=== PATIENT | female | born 1960 | race Caucasian/White ===

== ENCOUNTER 2017-06-15 03:33 | Observation (INO) ==
[2017-06-16] MEDS ORDERED: *HR* Heparin 5,000 UNIT/ML VIAL IVP PRN ×2 (07:19)
[2017-06-16] MEDS ORDERED: Naloxone 0.4 MG/ML INJ IVP PRN (09:19)
[2017-06-16 09:34] LABS: Potassium 4.5 mEq/L (3.5-5.1)
[2017-06-16 09:35] LABS: Calcium 9.2 mg/dL (8.6-10.3)
[2017-06-16] MEDS ORDERED: Furosemide 40 MG/4 ML VIAL IVP ONE (09:36)
[2017-06-16] MEDS ORDERED: Furosemide 40 MG/4 ML VIAL ONE (09:38)
[2017-06-16] MEDS: Heparin 25,000 UNIT/500 ML D5W 25,000 UNIT/500 ML BAG IVC SCH (09:53)
[2017-06-16] MEDS: traMADol 50 MG TABLET PO PRN ×3 (10:01→22:45)
[2017-06-16] MEDS ORDERED: Nitroglycerin 0.2 MG PATCH.TD24 TD SCH (10:15)
[2017-06-16 10:26] LABS: ABG Base Excess -2 mEq/L (-2 to 3); ABG HCO3 23 mEq/L (21-27); ABG Oxygen Saturation 96 % (95-98); ABG PCO2 37 mmHg (35-45); ABG PO2 80 mmHg (85-104); ABG TCO2 24 mEq/L (20-26)
--- NOTE | 2017-06-16 10:27 | Internal Med History&Physical ---
Date of Encounter: 06/16/17 Time of Encounter: 10:25 Assessment and Plan (1) Chest pain Current visit: Yes Status: Acute Patient with chest pain she states he had a cardiac catheter about 3 years ago some blockages no intervention done cardiology consulted could review prior cath film and decide on further intervention . am unable to see record of the cardiac cath in system Qualifiers: Chest pain type: precordial pain Qualified Code(s): R07.2 - Precordial pain (2) COPD (chronic obstructive pulmonary disease) Current visit: Yes Status: Chronic Patient had bilateral fine rales up to her neck more suggestive of pulmonary fibrosis I will check a stat Bnp as well Qualifiers: COPD type: unspecified COPD Qualified Code(s): J44.9 - Chronic obstructive pulmonary disease, unspecified (3) Pulmonary fibrosis Current visit: Yes Status: Chronic Chronic we will consult pulmonary for follow chest distress suggestive of small obesity of the left lateral base (4) HTN (hypertension) Current visit: Yes Status: Chronic Chronic and relatively controlled Qualifiers: Hypertension type: essential hypertension Qualified Code(s): I10 - Essential (primary) hypertension (5) Diabetes 1.5, managed as type 2 Current visit: Yes Status: Chronic Chronic and resume home medication and place on sliding scale (6) CKD (chronic kidney disease) Current visit: Yes Status: Chronic Chronic with fluctuating kidney function nephrology has been consulted for follow-up Qualifiers: Chronic kidney disease stage: stage 2 (mild) Qualified Code(s): N18.2 - Chronic kidney disease, stage 2 (mild) (7) Hyperlipidemia Current visit: Yes Status: Chronic Chronic Qualifiers: Hyperlipidemia type: pure hypercholesterolemia Qualified Code(s): E78.00 - Pure hypercholesterolemia, unspecified; E78.0 - Pure hypercholesterolemia (8) CAD (coronary artery disease) Current visit: Yes Status: Acute Qualifiers: Coronary Disease-Associated Artery/Lesion type: [place] artery [place] vs. transplanted heart: [place] heart Associated angina: with stable angina Qualified Code(s): I25.118 - Atherosclerotic heart disease of [place] coronary artery with other forms of angina pectoris Internal Medicine - H&P: HPI Chief complaint: chest pain Admitted From: Intrahospital Transfer Plans for Post Hospital Care: Home History of present illness: Ms. García is a 56 year old female Patient with history of CAD, COPD, pulmonary fibrosis, diabetes, hypertension, CK D, and obesity patient transfer from [facility] due to chest pain patient presented with chest pain recurrent episode radiating to her left arm and shoulder that being ongoing since Thursday and that she went in last night chest pain lasted several hours EKG nonspecific ST T wave changes troponin so far was negative and patient transfer here for further evaluation. Patient still short of breath on arrival here still has chest pain. Cardiology was called for consultation for further evaluation. Past Med Surg Social Fam HX - Past Medical History Medical history: COPD, diabetes, GERD, hyperlipidemia, hypertension Internal Medicine - H&P: Meds Albuterol Sulfate [Ventolin Hfa] 1 - 2 puff IH Q4-6H PRN 06/16/17 [History] Atorvastatin Calcium [Lipitor] 80 mg PO HS 06/16/17 [History] Bupropion HCl [Wellbutrin Xl] 300 mg PO DAILY 06/16/17 [History] Gabapentin [Neurontin] 300 mg PO BID 06/16/17 [History] Hydroxychloroquine Sulfate [Plaquenil] 200 mg PO BID 06/16/17 [History] Insulin NPH Hum/Reg Insulin Hm [Humulin 70-30 Vial] 40 unit SQ BID 06/16/17 [ History] Ipratropium/Albuterol Neb [Duoneb] 3 ml IH Q6HR PRN 06/16/17 [History] Levothyroxine Sodium [Levoxyl] 25 mcg PO DAILY 06/16/17 [History] Magnesium Oxide [Magnesium] 400 mg PO DAILY 06/16/17 [History] Metoprolol [Lopressor] 37.5 mg PO BID 06/16/17 [History] Mv,Fe,Min/Lutein [A Thru Z [employer] Tablet] 1 tab PO DAILY 06/16/17 [ History] Omeprazole [PriLOSEC] 20 mg PO DAILY 06/16/17 [History] RX: hydrALAZINE [HydrALAZINE] 10 mg PO TID 06/16/17 [History] Ubidecarenone [Co Q-10] 10 mg PO DAILY 06/16/17 [History] 3 Allergy/AdvReac Type Severity Reaction Status Date / Time codeine Allergy Vomiting Unverified 04/09/17 00:30 Cortisone Allergy Headache Unverified 04/09/17 00:30 methocarbamol [From Robaxin] Allergy See Unverified 04/09/17 00:30 Comments sulfasalazine Allergy Rash Unverified 04/09/17 00:31 All Systems PM: A 10-system review of systems was performed and is negative for pertinent findings except as documented above in the HPI. - Constitutional Constitutional: no chills, no fever(s), no night sweats - EENT Ears: no ear discharge, no ear pain, no tinnitus - Cardiovascular Cardiovascular ROS IM: chest pain, dyspnea, dyspnea on exertion - Respiratory Respiratory: dyspnea, dyspnea on exertion - Gastrointestinal Gastrointestinal: no abdominal pain, no diarrhea, no hematemesis, no hematochezia, no melena, no nausea, no vomiting - Genitourinary Genitourinary: no change in urinary stream, no dysuria, no flank pain, no hematuria - Constitutional Vitals: Temp Pulse Resp BP Pulse Ox 98.1 F 114 20 142/82 93 06/16/17 06:39 06/16/17 06:39 06/16/17 06:39 06/16/17 09:41 06/16/17 06:39 General appearance: Present: morbidly obese - Eye Eye exam: Present: PERRL, conjuntiva pink, sclera anicteric Pupils: Present: PERRL - Respiratory Respiratory exam: Present: prolonged expiratory phase, rhonchi - Cardiovascular Cardiovascular exam: Present: RRR, +S1, +S2. Absent: diastolic murmur, gallop, rubs, systolic murmur - GI/Abdominal GI/Abdominal exam: Present: normal bowel sounds, soft, no peritoneal signs. Absent: distended, tenderness Internal Med - H&P Results - Labs CBC & Chem 7: 06/16/17 07:19 Labs: BMP 06/16/17 07:19 Sodium 134 L Potassium 4.5 Chloride 101 Carbon Dioxide 20 L BUN 22 H Creatinine 1.73 H Glucose 249 H Calcium 9.2 Cardiac Enzymes 06/16/17 Range/Units 07:19 Troponin I < 0.03 (< 0.04) ng/mL
[2017-06-16] MEDS ORDERED: Dextrose Gel 15 GM/37.5 ML TUBE PO PRN ×2 (11:05)
[2017-06-16] MEDS ORDERED: *HR* Dextrose 50 % in Water (Syg) 50 ML SYRINGE IVP PRN (11:05)
[2017-06-16] MEDS ORDERED: D5% in Water 1,000 ML IVC PRN (11:05)
[2017-06-16] MEDS: Insulin LISPRO 300 UNITS/3 ML VIAL SQ SCH ×3 (11:18→22:14)
--- NOTE | 2017-06-16 12:07 | Event Note ---
Date of Encounter: 06/16/17 Time of Encounter: 12:10 - Cardiology Event Note Patient seen and examined by Dr. Naranjo, echo ordered per our discussions. Further recommendations pending echo.
[2017-06-16] MEDS: Ondansetron 4 MG/2 ML VIAL IVP SCH ×2 (12:40→17:32)
[2017-06-16] MEDS: Acetaminophen 325 MG TABLET PO PRN ×2 (12:45→19:49)
--- NOTE | 2017-06-16 13:11 | Nephrology Consult Note ---
Date of Encounter: 06/16/17 Time of Encounter: 13:09 Assessment and Plan (1) CKD (chronic kidney disease) stage 3, GFR 30-59 ml/min Current Visit: Yes Status: Acute Patient is at her baseline Scr 1.73 and GFR 30 If patient undergoes heart cath then renal protective measures should be taken including IV fluids of 0.9NS before and after procedure as tolerated and Mucomyst 600mg BID with two doses before cath and two doses after cath Need strict I/Os Avoid nephrotoxins if possible. (2) Chest pain Current Visit: Yes Status: Acute per cardiology team Qualifiers: Chest pain type: precordial pain Qualified Code(s): R07.2 - Precordial pain (3) COPD (chronic obstructive pulmonary disease) Current Visit: Yes Status: Chronic per primary team Qualifiers: COPD type: unspecified COPD Qualified Code(s): J44.9 - Chronic obstructive pulmonary disease, unspecified History of Present Illness - Reason for Consult Consult date: 06/16/17 - Chief Complaint chest pain, CKD stage 3b - History of Present Illness Ms. García is a 56 year old female with a PMH of CAD, COPD, pulmonary fibrosis , diabetes, hypertension, CKD stage 3b, and obesity patient transferred from [facility] due to chest pain. EKG changes but troponin so far was negative. Cardiology has ordered an echo which is pending. Patient follows with Dr Galvez in the office but has only seen her a couple times with last visit in April; has a f/u appointment with her in July. Past Med Surg Social Fam HX - Past Medical History Medical history: COPD, diabetes, GERD, hyperlipidemia, hypertension, renal disease Medications and Allergies Albuterol Sulfate [Ventolin Hfa] 1 - 2 puff IH Q4-6H PRN 06/16/17 [History] Atorvastatin Calcium [Lipitor] 80 mg PO HS 06/16/17 [History] Bupropion HCl [Wellbutrin Xl] 300 mg PO DAILY 06/16/17 [History] Gabapentin [Neurontin] 300 mg PO BID 06/16/17 [History] Hydroxychloroquine Sulfate [Plaquenil] 200 mg PO BID 06/16/17 [History] Insulin NPH Hum/Reg Insulin Hm [Humulin 70-30 Vial] 40 unit SQ BID 06/16/17 [ History] Ipratropium/Albuterol Neb [Duoneb] 3 ml IH Q6HR PRN 06/16/17 [History] Levothyroxine Sodium [Levoxyl] 25 mcg PO DAILY 06/16/17 [History] Magnesium Oxide [Magnesium] 400 mg PO DAILY 06/16/17 [History] Metoprolol [Lopressor] 37.5 mg PO BID 06/16/17 [History] Mv,Fe,Min/Lutein [A Thru Z [employer] Tablet] 1 tab PO DAILY 06/16/17 [ History] Omeprazole [PriLOSEC] 20 mg PO DAILY 06/16/17 [History] Ubidecarenone [Co Q-10] 10 mg PO DAILY 06/16/17 [History] hydrALAZINE [HydrALAZINE] 10 mg PO TID 06/16/17 [History] 3 Allergy/AdvReac Type Severity Reaction Status Date / Time codeine Allergy Vomiting Unverified 04/09/17 00:30 Cortisone Allergy Headache Unverified 04/09/17 00:30 methocarbamol [From Robaxin] Allergy See Unverified 04/09/17 00:30 Comments sulfasalazine Allergy Rash Unverified 04/09/17 00:31 Review of Systems All Systems: reviewed and no additional remarkable complaints except as stated Constitutional: malaise, no chills, no fever(s) Cardiovascular: chest pain, dyspnea, dyspnea on exertion Respiratory: dyspnea, dyspnea on exertion Gastrointestinal: no cramping, no nausea Neurological: no behavioral changes Exam - Vital Signs Vital signs: Initial Vital Signs Temp Pulse Resp BP Pulse Ox 98.1 F 114 20 143/103 93 06/16/17 06:39 06/16/17 06:39 06/16/17 06:39 06/16/17 06:39 06/16/17 06:39 Vital Signs - Last 8 Hours Temp Pulse Resp BP Pulse Ox 06/16/17 11:11 97.7 F 113 20 157/97 98 06/16/17 09:41 142/82 06/16/17 06:39 98.1 F 114 20 143/103 93 Intake and Output 06/15/17 06/16/17 06/16/17 23:59 07:59 15:59 Other: Weight 83.915 kg Blood Glucose* 228 Patient Weight 06/16/17 23:59 Weight 83.915 kg - General Appearance General appearance: obese EENT: ATNC, mucous membranes moist, hearing intact, vision intact Neck: supple Respiratory: clear (labored, difficulty talking in complete sentenses due to SOB ) Cardiology: no edema, normal S1, normal S2 Gastrointestinal: no tenderness, no guarding Integumentary: warm and dry Neurologic: alert and oriented x3 Psychiatric: mood/affect appropriate, cooperative Results - Lab Results 06/16/17 07:19 Most recent lab results ABG pH 7.40 pH Units (7.32-7.45) 06/16/17 10:08 ABG pCO2 37 mmHg (35-45) 06/16/17 10:08 ABG pO2 80 mmHg (85-104) L 06/16/17 10:08 ABG HCO3 23 mEq/L (21-27) 06/16/17 10:08 ABG O2 Saturation 96 % (95-98) 06/16/17 10:08 Calcium 9.2 mg/dL (8.6-10.3) 06/16/17 07:19 Consult Discharge Plan - Plan Referrals: Risa Epperson MD [Primary Care Provider] -
--- NOTE | 2017-06-16 13:49 | Cardiology Consult Note ---
Date of Encounter: 06/16/17 Time of Encounter: 13:46 Assessment and Plan (1) Chest pain Current Visit: Yes Status: Acute pleuritic with negative Cl x 2. No LHC unless convincing ACS due to CKD. No diuresis unless Vlume overload on Cxray or non contrast CT, bibasilar crackles can be UIP. Continue NTG atch and titrate to SBP of 100 mmHg Qualifiers: Chest pain type: precordial pain Qualified Code(s): R07.2 - Precordial pain (2) CAD (coronary artery disease) Current Visit: Yes Status: Acute Known severe 2 vessel cad as above. High risk LHC due to CKD, would consider NST if trops continue to be negative and patients chest pain/SOB improve. Qualifiers: Coronary Disease-Associated Artery/Lesion type: [place] artery [place] vs. transplanted heart: [place] heart Associated angina: with stable angina Qualified Code(s): I25.118 - Atherosclerotic heart disease of [place] coronary artery with other forms of angina pectoris Discussion w patient/family: The assessment and plan as outlined above was discussed with the patient and/or family members who expressed understanding and agreement. All questions were answered. Thank you for involving us in the care of your patient. Please call with any questions. History of Present Illness Consult date: 06/16/17 Consult reason: chest pain Chief complaint: chest pain History of present illness: Ms. García is a 56 year old female with a PMH of CAD, COPD, pulmonary fibrosis , diabetes, hypertension, CKD stage 3b, and obesity patient transferred from [facility] due to chest pain. Chest pain atypical slightly pleuritc in nature worse with deep breathing. EKG inferolateral changes suggestive of ischemia. Troponins x2 negative so far. Bibasilar crackles and mild LE edema intial thought was pulmonary edema however after x 2 negatiive Cl and UIP on CT of the chest no Lasix was administered only NTG patch for reducing her preload. I was concerned about her renal function and so Nephrology was consulted, appreciate there input. I will obtain an ECHO to evaluate for SHD and consider a NST since trops are negative. Previous [facility] 2014 reveals occluded LAD and severe disease of the CIRC. Some collaterals from RCA to LAD noted. CXray pending. Past Med Surg Social Fam HX - Past Medical History Medical history: COPD, diabetes, GERD, hyperlipidemia, hypertension, renal disease Medications and Allergies Albuterol Sulfate [Ventolin Hfa] 1 - 2 puff IH Q4-6H PRN 06/16/17 [History] Atorvastatin Calcium [Lipitor] 80 mg PO HS 06/16/17 [History] Bupropion HCl [Wellbutrin Xl] 300 mg PO DAILY 06/16/17 [History] Gabapentin [Neurontin] 300 mg PO BID 06/16/17 [History] Hydroxychloroquine Sulfate [Plaquenil] 200 mg PO BID 06/16/17 [History] Insulin NPH Hum/Reg Insulin Hm [Humulin 70-30 Vial] 40 unit SQ BID 06/16/17 [ History] Ipratropium/Albuterol Neb [Duoneb] 3 ml IH Q6HR PRN 06/16/17 [History] Levothyroxine Sodium [Levoxyl] 25 mcg PO DAILY 06/16/17 [History] Magnesium Oxide [Magnesium] 400 mg PO DAILY 06/16/17 [History] Metoprolol [Lopressor] 37.5 mg PO BID 06/16/17 [History] Mv,Fe,Min/Lutein [A Thru Z [employer] Tablet] 1 tab PO DAILY 06/16/17 [ History] Omeprazole [PriLOSEC] 20 mg PO DAILY 06/16/17 [History] Ubidecarenone [Co Q-10] 10 mg PO DAILY 06/16/17 [History] hydrALAZINE [HydrALAZINE] 10 mg PO TID 06/16/17 [History] 3 Allergy/AdvReac Type Severity Reaction Status Date / Time codeine Allergy Vomiting Unverified 04/09/17 00:30 Cortisone Allergy Headache Unverified 04/09/17 00:30 methocarbamol [From Robaxin] Allergy See Unverified 04/09/17 00:30 Comments sulfasalazine Allergy Rash Unverified 04/09/17 00:31 All Systems Review: The remainder of the systems were reviewed and are negative Physical Examination Vital Signs, Last 4 Hours Temp Pulse Resp BP Pulse Ox 06/16/17 11:11 97.7 F 113 20 157/97 98 General: Conversant, No Apparent Distress HEENT: Atraumatic, Normocephaly, Mucus Membranes Moist Neck: No JVD, Normal carotid pulses Cardiac: Reg Rate and Rhythm, Normal S1 and S2, No Murmur Lungs: Normal Breath Sounds, No Wheeze, Rales, Rhonchi (bibasilar crackles) Neuro: Alert and responsive, No focal deficits noted Abdomen: Soft, Non-Tender Skin: No rashes noted on visualized skin Musculoskeletal: No Chest Wall Tenderness Extremities: No Clubbing, No Cyanosis, No Edema, Normal Pulses Results 06/16/17 07:19 Lab Results 06/16/17 06/16/17 06/16/17 07:19 07:19 07:19 APTT 78.6 H Sodium 134 L Potassium 4.5 Chloride 101 Carbon Dioxide 20 L BUN 22 H Creatinine 1.73 H Glucose 249 H Calcium 9.2 Troponin I < 0.03 B-Natriuretic Peptide 06/16/17 06/16/17 09:57 09:57 APTT Sodium Potassium Chloride Carbon Dioxide BUN Creatinine Glucose Calcium Troponin I < 0.03 B-Natriuretic Peptide 177 H Consult Discharge Plan - Plan Referrals: Risa Epperson MD [Primary Care Provider] -
[2017-06-16 15:58] LABS: Bilirubin,Urine Negative (Negative); Blood,Urine Small (Negative); Clarity,Urine Turbid (Clear); Color,Urine Yellow (Yellow); Glucose,Urine (UA) 100 mg/dL (Normal); Ketones,Urine Negative (Negative); Leukocyte Esterase,Urine Negative (Negative); Nitrite,Urine Negative (Negative); PH,Urine 5.5 pH Units (5.0-8.0); Protein,Urine 100 mg/dL (Neg-Trace); Specific Gravity,Urine 1.027 (1.010-1.025); Urobilinogen,Urine Normal (Normal)
[2017-06-16 16:00] LABS: Bacteria,Urine None Seen per hpf (None-Few); RBC,Urine 30-50 per hpf (0-3); Squamous Epithelial Cell,Urine Many per lpf (None-Few)
[2017-06-16] MEDS ORDERED: 0.9 % Sodium Chloride 1,000 ML IVC SCH (17:30)
[2017-06-16] MEDS ORDERED: Ondansetron 4 MG/2 ML VIAL IVP SCH (18:00)
[2017-06-16] MEDS: Gabapentin 300 MG CAPSULE PO SCH (19:49)
[2017-06-16 19:54] LABS: Hyaline Casts,Urine Few per lpf (None-Few)
[2017-06-17] MEDS: Ondansetron 4 MG/2 ML VIAL IVP SCH ×4 (01:06→17:48)
[2017-06-17 01:45] LABS: Basophils % 0.2 %; Eosinophils # 0.1 K/mcL (0.0-0.6); Eosinophils % 0.5 %; Hemoglobin 9.6 g/dL (11.5-15.4); Immature Granulocytes % 0.7 % (0-4); Lymphocytes # 1.2 K/mcL (0.6-4.6); Lymphocytes % 9.6 %; Mean Corpuscular Hemoglobin 29.4 pg (28.0-33.3); Mean Corpuscular Volume 91.7 fL (83.0-100.0); Mean Platelet Volume 11.5 fL (9.4-12.4); Monocytes # 1.1 K/mcL (0.0-1.3); Monocytes % 8.7 %; Neutrophils # 9.9 K/mcL (1.6-8.9); Platelet Count 258 K/mcL (140-400); Red Blood Count 3.27 M/mcL (3.82-4.97); Red Cell Distribution Width 15.2 % (11.5-14.5); Segmented Neutrophils % 80.3 %
[2017-06-17 02:11] LABS: Albumin 3.5 g/dL (3.5-5.7); Bilirubin,Direct 0.1 mg/dL (0.0-0.2); Bilirubin,Indirect 0.3 mg/dL (0.0-1.2); Bilirubin,Total 0.4 mg/dL (0.3-1.0); Globulin 3.6 g/dL (2.4-3.5); Total Protein 7.1 g/dL (6.4-8.9)
[2017-06-17 02:12] LABS: Albumin 3.5 g/dL (3.5-5.7); Bilirubin,Total 0.4 mg/dL (0.3-1.0); Calcium 9.3 mg/dL (8.6-10.3); Chol/HDL Ratio 6.3 (0-4.9); Globulin 3.5 g/dL (2.4-3.5); Magnesium 1.5 mg/dL (1.6-2.6)
[2017-06-17] MEDS: Heparin 25,000 UNIT/500 ML D5W 25,000 UNIT/500 ML BAG IVC SCH (06:15)
[2017-06-17] MEDS: traMADol 50 MG TABLET PO PRN ×2 (06:18→14:05)
[2017-06-17] MEDS: Levothyroxine 25 MCG TABLET PO SCH (06:19)
[2017-06-17] MEDS ORDERED: Nitroglycerin 0.2 MG PATCH.TD24 TD SCH (07:30)
[2017-06-17] MEDS: (Ubidecarenone [Co Q-10] 10 MG) PO SCH (07:45)
[2017-06-17] MEDS: Insulin LISPRO 300 UNITS/3 ML VIAL SQ SCH ×4 (07:52→22:19)
--- NOTE | 2017-06-17 10:19 | Internal Med Progress Note ---
<Juan Funk - Last Filed: 06/17/17 12:03> Date of Encounter: 06/17/17 Time of Encounter: 10:17 - Assessment and plan (1) Chest pain Current Visit: Yes Status: Acute Assessment and plan: Patient's chest pain is improved Cardiology has been consulted-recommended continuation of the nitroglycerin patch. Cardiology feels that this patient is high risk for an LHC due to her CKD. Possible NST if troponins are still negative and the patient's chest pain and shortness of breath improved. Patient is currently NPO per cardiology Echocardiogram showed LV EF of 40-45% with a moderate to large pericardial effusion without evidence of tamponade. We will repeat a limited echocardiogram to evaluate pericardial effusion. CT scan of the chest showed: Findings as above suggesting edema superimposed on top of the interstitial lung disease. Small to moderate pericardial effusion, new. No substantial change otherwise Qualifiers: Chest pain type: precordial pain Qualified Code(s): R07.2 - Precordial pain (2) Pneumonia Current Visit: Yes Status: Suspected Assessment and plan: Concern for possible pneumonia based on CT scan and elevated white count. Patient will be started on IV Levaquin and steroids Pulmonology has been consult. Qualifiers: Pneumonia type: due to unspecified organism Laterality: right Lung location: upper lobe of lung Qualified Code(s): J18.1 - Lobar pneumonia, unspecified organism (3) CAD (coronary artery disease) Current Visit: Yes Status: Acute Assessment and plan: Patient has a history of significant 2 vessel disease. Per medical record it appears that she has occluded LAD and severe disease of her circumflex. Qualifiers: Coronary Disease-Associated Artery/Lesion type: [place] artery [place] vs. transplanted heart: [place] heart Associated angina: with stable angina Qualified Code(s): I25.118 - Atherosclerotic heart disease of [place] coronary artery with other forms of angina pectoris (4) Diabetes Current Visit: Yes Status: Acute Assessment and plan: Patient is on medium corrective dose insulin Continue with current insulin regimen. Qualifiers: Diabetes mellitus type: other specified (including ILIR) Diabetes mellitus complication status: with unspecified complications Diabetes mellitus intermodal dispatcher insulin use: unspecified intermodal dispatcher insulin use status Qualified Code(s): E13.8 - Other specified diabetes mellitus with unspecified complications (5) Pulmonary fibrosis Current Visit: Yes Status: Chronic Assessment and plan: Patient is a chronic history of pulmonary fibrosis Pulmonology has been consulted Continue with oxygen supplementation (6) CKD (chronic kidney disease) Current Visit: Yes Status: Chronic Assessment and plan: CKD stage III Nephrology has been consulted and is following the patient. Retroperitoneal ultrasound is unremarkable. Qualifiers: Chronic kidney disease stage: stage 2 (mild) Qualified Code(s): N18.2 - Chronic kidney disease, stage 2 (mild) (7) Swelling of left lower extremity Current Visit: Yes Status: Acute Assessment and plan: Unequal swelling of the lower extremities. Patient has swelling to the left lower extremity A venous imaging of the left lower extremity to evaluate for DVT has been ordered by nephrology. (8) HTN (hypertension) Current Visit: Yes Status: Chronic Assessment and plan: Chronic continue with current medical management. Qualifiers: Hypertension type: essential hypertension Qualified Code(s): I10 - Essential (primary) hypertension (9) Hyperlipidemia Current Visit: Yes Status: Chronic Assessment and plan: chronic issue Qualifiers: Hyperlipidemia type: pure hypercholesterolemia Qualified Code(s): E78.00 - Pure hypercholesterolemia, unspecified; E78.0 - Pure hypercholesterolemia - Subjective Interval history: Patient states that her chest pain is feeling better today however she is still having neck and shoulder pain. She states that the chest pain that she was experiencing was new located in the center of her chest that radiated to her right shoulder and into her neck. Patient does state that she has been wearing 2 L of oxygen at home however she recently tried requalify with the 6 minute walk but her oxygen saturation did not drop below 90% and states that they will be taking her home oxygen away. - Constitutional Vitals: Temp Pulse Resp BP Pulse Ox 97.9 F 109 20 156/89 97 06/17/17 06:51 06/17/17 06:51 06/17/17 06:51 06/17/17 06:51 06/17/17 08:01 General appearance: Present: morbidly obese - Head Head exam: Present: atraumatic, normocephalic - Neck Neck exam general surgery: Present: full ROM, normal inspection, trachea midline - Respiratory Additional comments: Diminished breath sounds bilaterally - Cardiovascular Cardiovascular exam: Present: RRR, +S1, +S2. Absent: diastolic murmur, gallop, rubs, systolic murmur - GI/Abdominal GI/Abdominal exam: Present: normal bowel sounds, soft, no peritoneal signs. Absent: distended, tenderness - Extremities Exam Additional comments: Patient has asymmetrical swelling of the lower extremities. She has increased swelling in her left lower extremity - Neurological Exam Neurological exam: Present: altered, oriented X3, no focal deficits. Absent: facial droop, speech deficit - Psychiatric Psychiatric exam: Present: normal affect, normal mood - Skin Skin exam: Present: dry, intact, warm Internal Medicine: Result - Labs CBC & Chem 7: 06/17/17 01:12 06/17/17 01:12 Labs: Short CBC 06/17/17 Range/Units 01:12 WBC 12.3 H (4.3-11.1) K/mcL Hgb 9.6 L (11.5-15.4) g/dL Hct 30.0 L (35.3-44.9) % Plt Count 258 (140-400) K/mcL Neutrophils # 9.9 H (1.6-8.9) K/mcL BMP 06/17/17 01:12 Sodium 133 L Potassium 4.0 Chloride 100 Carbon Dioxide 23 BUN 26 H Creatinine 1.66 H Glucose 144 H Calcium 9.3 Cardiac Enzymes 06/16/17 06/16/17 06/16/17 Range/Units 09:57 17:09 22:00 Troponin I < 0.03 < 0.03 < 0.03 (< 0.04) ng/mL Liver Function 06/17/17 06/17/17 Range/Units 01:12 01:12 Total Bilirubin 0.4 0.4 (0.3-1.0) mg/dL Direct Bilirubin 0.1 (0.0-0.2) mg/dL AST 12 L 12 L (13-39) Units/L ALT 16 16 (7-52) Units/L Alkaline Phosphatase 67 67 (34-104) Units/L Albumin 3.5 3.5 (3.5-5.7) g/dL Urine 06/16/17 Range/Units 15:08 Urine Color Yellow (Yellow) Urine Clarity Turbid A (Clear) Urine pH 5.5 (5.0-8.0) pH Units Ur Specific [place] 1.027 H (1.010-1.025) Urine Protein 100 H (Neg-Trace) mg/dL Urine Glucose (UA) 100 H (Normal) mg/dL - ABG Interpretation ABG results: ABG ABG pH 7.40 pH Units (7.32-7.45) 06/16/17 10:08 ABG pCO2 37 mmHg (35-45) 06/16/17 10:08 ABG pO2 80 mmHg (85-104) L 06/16/17 10:08 ABG O2 Saturation 96 % (95-98) 06/16/17 10:08 - Impressions Impressions Echocardiogram 06/16/17 10:30 Impressions: Difficult to precisely determine LVEF due to poor image quality. Grossly, LVEF 40-45%. Indeterminate diastolic function. Grossly, normal right ventricular structure and function. Grossly normal right atrial size. Unable to estimate RVSP due to lack of TR jet. The IVC is not well evaluated. There is a moderate to large pericardial effusion present. Echogenic material noted, adherent to the RV. No obvious tamponade. Overall, this was a very poor quality echocardiogram due to clinical status and poor windows. Clinical correlation suggested. Recommend repeat study with Definity contrast when able to better evaluate LVEF. Repeat study as clinically necessary for pericardial effusion. Results discussed with Dr. Meadows. Findings: Study Quality * Technically sub-optimal due to clinical status and poor echocardiographic windows. ECG Findings * Normal sinus rhythm. Left Ventricle * Difficult to precisely determine LVEF due to poor image quality. Grossly, LVEF 40-45%. * Indeterminate diastolic function. Right Ventricle * Grossly, normal right ventricular structure and function. Left Atrium * Mildly dilated left atrium. Right Atrium * Grossly normal right atrial size. Interatrial Septum * Interatrial septum not well evaluated. Aortic Valve * Aortic valve not well visualized. * No aortic regurgitation. * No aortic stenosis. Mitral Valve * Mitral valve not well visualized. * No mitral regurgitation. * No mitral stenosis. Tricuspid Valve * Tricuspid valve not well visualized. * No tricuspid regurgitation. * Unable to estimate RVSP due to lack of TR jet. Pulmonic Valve * Pulmonic valve not well visualized. Aorta * Normally sized aortic root. IVC * The IVC is not well evaluated. Pericardium * There is a moderate to large pericardial effusion present. Echogenic material noted, adherent to the RV. No obvious tamponade. Pulmonary Artery * Pulmonary artery not well visualized. Chest CT 06/16/17 18:24 IMPRESSION: Findings as above suggesting edema superimposed on top of the interstitial lung disease. Small to moderate pericardial effusion, new. No substantial change otherwise. D/ / Yumiko Almazan MD / Yumiko Almazan MD Interpreting Provider: Yumiko Almazan MD Consult Discharge Plan - Plan Referrals: Risa Epperson MD [Primary Care Provider] - <EmmalennoxSudarshan sylvester H - Last Filed: 06/17/17 12:18> Date of Encounter: 06/17/17 - Constitutional Vitals: Temp Pulse Resp BP Pulse Ox 98.1 F 104 18 156/84 97 06/17/17 11:26 06/17/17 11:26 06/17/17 11:26 06/17/17 11:26 06/17/17 11:52 Internal Medicine: Result - Labs CBC & Chem 7: 06/17/17 01:12 06/17/17 01:12 Labs: Short CBC 06/17/17 Range/Units 01:12 WBC 12.3 H (4.3-11.1) K/mcL Hgb 9.6 L (11.5-15.4) g/dL Hct 30.0 L (35.3-44.9) % Plt Count 258 (140-400) K/mcL Neutrophils # 9.9 H (1.6-8.9) K/mcL BMP 06/17/17 01:12 Sodium 133 L Potassium 4.0 Chloride 100 Carbon Dioxide 23 BUN 26 H Creatinine 1.66 H Glucose 144 H Calcium 9.3 Cardiac Enzymes 06/16/17 06/16/17 Range/Units 17:09 22:00 Troponin I < 0.03 < 0.03 (< 0.04) ng/mL Liver Function 06/17/17 06/17/17 Range/Units 01:12 01:12 Total Bilirubin 0.4 0.4 (0.3-1.0) mg/dL Direct Bilirubin 0.1 (0.0-0.2) mg/dL AST 12 L 12 L (13-39) Units/L ALT 16 16 (7-52) Units/L Alkaline Phosphatase 67 67 (34-104) Units/L Albumin 3.5 3.5 (3.5-5.7) g/dL Urine 06/16/17 Range/Units 15:08 Urine Color Yellow (Yellow) Urine Clarity Turbid A (Clear) Urine pH 5.5 (5.0-8.0) pH Units Ur Specific [place] 1.027 H (1.010-1.025) Urine Protein 100 H (Neg-Trace) mg/dL Urine Glucose (UA) 100 H (Normal) mg/dL - ABG Interpretation ABG results: ABG ABG pH 7.40 pH Units (7.32-7.45) 06/16/17 10:08 ABG pCO2 37 mmHg (35-45) 06/16/17 10:08 ABG pO2 80 mmHg (85-104) L 06/16/17 10:08 ABG O2 Saturation 96 % (95-98) 06/16/17 10:08 - Impressions Impressions Echocardiogram 06/16/17 10:30 Impressions: Difficult to precisely determine LVEF due to poor image quality. Grossly, LVEF 40-45%. Indeterminate diastolic function. Grossly, normal right ventricular structure and function. Grossly normal right atrial size. Unable to estimate RVSP due to lack of TR jet. The IVC is not well evaluated. There is a moderate to large pericardial effusion present. Echogenic material noted, adherent to the RV. No obvious tamponade. Overall, this was a very poor quality echocardiogram due to clinical status and poor windows. Clinical correlation suggested. Recommend repeat study with Definity contrast when able to better evaluate LVEF. Repeat study as clinically necessary for pericardial effusion. Results discussed with Dr. Meadows. Findings: Study Quality * Technically sub-optimal due to clinical status and poor echocardiographic windows. ECG Findings * Normal sinus rhythm. Left Ventricle * Difficult to precisely determine LVEF due to poor image quality. Grossly, LVEF 40-45%. * Indeterminate diastolic function. Right Ventricle * Grossly, normal right ventricular structure and function. Left Atrium * Mildly dilated left atrium. Right Atrium * Grossly normal right atrial size. Interatrial Septum * Interatrial septum not well evaluated. Aortic Valve * Aortic valve not well visualized. * No aortic regurgitation. * No aortic stenosis. Mitral Valve * Mitral valve not well visualized. * No mitral regurgitation. * No mitral stenosis. Tricuspid Valve * Tricuspid valve not well visualized. * No tricuspid regurgitation. * Unable to estimate RVSP due to lack of TR jet. Pulmonic Valve * Pulmonic valve not well visualized. Aorta * Normally sized aortic root. IVC * The IVC is not well evaluated. Pericardium * There is a moderate to large pericardial effusion present. Echogenic material noted, adherent to the RV. No obvious tamponade. Pulmonary Artery * Pulmonary artery not well visualized. Chest CT 06/16/17 18:24 IMPRESSION: Findings as above suggesting edema superimposed on top of the interstitial lung disease. Small to moderate pericardial effusion, new. No substantial change otherwise. D/ / Yumiko Almazan MD / Yumiko Almazan MD Interpreting Provider: Yumiko Almazan MD - Attending Attestation Acute on chronic respiratory failure atelectasis secondary to sepsis due to possible community-acquired pneumonia, unknown agent Blood cell count is more than 12, heart rate 109 CT scan report does not describe new opacities in the left lower lobe, concerning for possible pneumonia *Levaquin, Solu-Medrol, oxygen therapy I examined this patient and my medical decision-making was reviewed with the Resident Physician. I agree with the documented findings, disposition and treatment plan as described except to the extent set forth below.
--- NOTE | 2017-06-17 13:05 | Event Note ---
Date of Encounter: 06/17/17 Time of Encounter: 12:30 - Cardiology Event Note Reviewed echo findings (see below) with Dr. Naranjo who recommends intervention for pericardial effusion--drain vs. window. Heparin gtt stopped. Discussed with interventionalist, Dr. Smith who recommends CT Surgery consult. Page placed to Dr. Lima with CT surgery. See cardiology progress note by Dr. Naranjo for further recommendations/plan. Impressions Echocardiogram 06/16/17 10:30 Impressions: Difficult to precisely determine LVEF due to poor image quality. Grossly, LVEF 40-45%. Indeterminate diastolic function. Grossly, normal right ventricular structure and function. Grossly normal right atrial size. Unable to estimate RVSP due to lack of TR jet. The IVC is not well evaluated. There is a moderate to large pericardial effusion present. Echogenic material noted, adherent to the RV. No obvious tamponade. Overall, this was a very poor quality echocardiogram due to clinical status and poor windows. Clinical correlation suggested. Recommend repeat study with Definity contrast when able to better evaluate LVEF. Repeat study as clinically necessary for pericardial effusion. Results discussed with Dr. Meadows. Findings: Study Quality * Technically sub-optimal due to clinical status and poor echocardiographic windows. ECG Findings * Normal sinus rhythm. Left Ventricle * Difficult to precisely determine LVEF due to poor image quality. Grossly, LVEF 40-45%. * Indeterminate diastolic function. Right Ventricle * Grossly, normal right ventricular structure and function. Left Atrium * Mildly dilated left atrium. Right Atrium * Grossly normal right atrial size. Interatrial Septum * Interatrial septum not well evaluated. Aortic Valve * Aortic valve not well visualized. * No aortic regurgitation. * No aortic stenosis. Mitral Valve * Mitral valve not well visualized. * No mitral regurgitation. * No mitral stenosis. Tricuspid Valve * Tricuspid valve not well visualized. * No tricuspid regurgitation. * Unable to estimate RVSP due to lack of TR jet. Pulmonic Valve * Pulmonic valve not well visualized. Aorta * Normally sized aortic root. IVC * The IVC is not well evaluated. Pericardium * There is a moderate to large pericardial effusion present. Echogenic material noted, adherent to the RV. No obvious tamponade. Pulmonary Artery * Pulmonary artery not well visualized. Chest CT 06/16/17 18:24 IMPRESSION: Findings as above suggesting edema superimposed on top of the interstitial lung disease. Small to moderate pericardial effusion, new. No substantial change otherwise. D/ / Yumiko Almazan MD / Yumiko Almazan MD Interpreting Provider: Yumiko Almazan MD
[2017-06-17] MEDS: Levofloxacin 750 MG/150 ML 750 MG/150 ML BAG IVPB SCH (13:38)
[2017-06-17] MEDS: BuPROPion XL (24 HR) 150 MG TABLET PO SCH (13:41)
[2017-06-17] MEDS: Multivit/Ca/Min/Fe/FA 1 TAB TABLET PO SCH (13:42)
[2017-06-17] MEDS: Magnesium Oxide 400 MG TABLET PO SCH (13:42)
[2017-06-17] MEDS: Gabapentin 300 MG CAPSULE PO SCH ×2 (13:42→20:46)
[2017-06-17] MEDS: Furosemide 20 MG/2 ML VIAL IVP SCH ×2 (13:43→20:46)
--- NOTE | 2017-06-17 15:23 | Cardiothoracic Consult Note ---
Date of Encounter: 06/17/17 Time of Encounter: 15:20 Assessment and Plan (1) Pulmonary fibrosis Current Visit: Yes Status: Chronic The assessment and plan as outlined above was discussed with the patient and/or family members who expressed understanding and agreement. All questions were answered. The patient has a small to moderate pericardial effusion present on CT scan. I personally reviewed this and agree that it was small. She shows no clinical signs of tamponade. Echocardiogram revealed no signs of A non-, but was a poor study. First, I would repeat the echocardiogram and get a good study. It is possible that this can be treated medically. I did discuss pericardial window with biopsy with the patient and her family. This would need to be done in the operating room and would require intubation and general anesthesia. They are worried about her pulmonary fibrosis and this would be her major risk factor for surgery. At this point, I would repeat the echocardiogram. The patient would also need open lung biopsy at some point for eventual lung transplant. At this point the patient and her family do not wish to proceed with pericardial window. - History of Present Illness History of present illness: Ms. García is a 56 year old female History of present illness. The patient is a 56-year-old female who presented with worsening shortness of breath. She also had some chest pain, but negative troponins. Echocardiogram revealed an ejection fraction of 40-45%. It also revealed a moderate to large pericardial effusion, but no cardiac tamponade. CT scan of the chest did reveal a small pericardial effusion. Past medical history is notable for pulmonary fibrosis she was on 3 L of oxygen continuously before admission. She also has COPD, hypertension, diabetes and hypercholesterolemia. She has chronic kidney disease with a creatinine of 1.73. She did have a myocardial infarction many years ago. She is on insulin for her diabetes. Social history. She lives in [facility]. She used to smoke but quit in December 2016. Does not drink alcohol. Family history is positive for heart disease. Review of systems is negative for stroke or TIA. The patient is to be scheduled for open lung biopsy for eventual lung transplant. Past Med Surg Social Fam HX - Past Medical History Medical history: COPD, diabetes, GERD, hyperlipidemia, hypertension, renal disease Medications and Allergies Albuterol Sulfate [Ventolin Hfa] 1 - 2 puff IH Q4-6H PRN 06/16/17 [History] Atorvastatin Calcium [Lipitor] 80 mg PO HS 06/16/17 [History] Bupropion HCl [Wellbutrin Xl] 300 mg PO DAILY 06/16/17 [History] Gabapentin [Neurontin] 300 mg PO BID 06/16/17 [History] Hydroxychloroquine Sulfate [Plaquenil] 200 mg PO BID 06/16/17 [History] Insulin NPH Hum/Reg Insulin Hm [Humulin 70-30 Vial] 40 unit SQ BID 06/16/17 [ History] Ipratropium/Albuterol Neb [Duoneb] 3 ml IH Q6HR PRN 06/16/17 [History] Levothyroxine Sodium [Levoxyl] 25 mcg PO DAILY 06/16/17 [History] Magnesium Oxide [Magnesium] 400 mg PO DAILY 06/16/17 [History] Metoprolol [Lopressor] 37.5 mg PO BID 06/16/17 [History] Mv,Fe,Min/Lutein [A Thru Z [employer]'s Tablet] 1 tab PO DAILY 06/16/17 [ History] Omeprazole [PriLOSEC] 20 mg PO DAILY 06/16/17 [History] Ubidecarenone [Co Q-10] 10 mg PO DAILY 06/16/17 [History] hydrALAZINE [HydrALAZINE] 10 mg PO TID 06/16/17 [History] 3 Allergy/AdvReac Type Severity Reaction Status Date / Time codeine Allergy Vomiting Verified 06/17/17 07:46 Cortisone Allergy Headache Verified 06/17/17 07:46 methocarbamol [From Robaxin] Allergy See Verified 06/17/17 07:46 Comments sulfasalazine Allergy Rash Verified 06/17/17 07:46 All Systems Review: The remainder of the systems were reviewed and are negative Physical Examination Vital Signs, Last 4 Hours Temp Pulse Resp BP Pulse Ox 06/17/17 11:52 97 06/17/17 11:26 98.1 F 104 18 156/84 97 Neck is supple. Trachea in the midline. No carotid bruits. No jugular venous distention. Lungs have scattered rales and rhonchi. Heart is in a regular rate and rhythm. Blood pressure is 156/85. Pulse is 100 and regular. No pulsus paradoxus. Good heart tones. No murmurs, gallops or rubs. Abdomen is benign. No tenderness, rebound or guarding. Extremities with 1-2+ pitting edema worse on the left. Cranial nerves, motor and sensory intact. Results 06/17/17 01:12 06/17/17 01:12 Lab Results, Last 24 hours 06/16/17 06/16/17 06/16/17 17:09 17:09 22:00 WBC Hgb Hct Plt Count APTT 53.2 H Sodium Potassium Chloride Carbon Dioxide BUN Creatinine Glucose Calcium Magnesium Total Bilirubin AST ALT Alkaline Phosphatase Troponin I < 0.03 < 0.03 06/16/17 06/17/17 06/17/17 22:00 01:12 01:12 WBC 12.3 H Hgb 9.6 L Hct 30.0 L Plt Count 258 APTT 64.2 H Sodium 133 L Potassium 4.0 Chloride 100 Carbon Dioxide 23 BUN 26 H Creatinine 1.66 H Glucose 144 H Calcium 9.3 Magnesium 1.5 L Total Bilirubin 0.4 AST 12 L ALT 16 Alkaline Phosphatase 67 Troponin I 06/17/17 06/17/17 01:12 05:03 WBC Hgb Hct Plt Count APTT 47.6 H Sodium Potassium Chloride Carbon Dioxide BUN Creatinine Glucose Calcium Magnesium Total Bilirubin 0.4 AST 12 L ALT 16 Alkaline Phosphatase 67 Troponin I Consult Discharge Plan - Plan Referrals: Risa Epperson MD [Primary Care Provider] -
[2017-06-17] MEDS ORDERED: Perflutren Lipid Microsphere 1.3 ML in 0.9 % Sodium Chloride 8.7 ML IVP ONE ×2 (16:32→20:00)
[2017-06-17] MEDS: MethylPREDNISolone 40 MG/ML VIAL IVP SCH (17:51)
[2017-06-17] MEDS: Acetaminophen 325 MG TABLET PO PRN (17:51)
[2017-06-17 18:32] LABS: Creatinine,Urine 164 mg/dL; Microalbumin,Urine > 450 mg/L; Protein/Creatinine Ratio,Urine 1.45 mg/mg (0.00-0.20); Sodium, Urine 70.4 mEq/L
[2017-06-17] MEDS: Nitroglycerin 0.2 MG PATCH.TD24 TD SCH (22:19)
--- NOTE | 2017-06-17 22:56 | Nephrology Progress Note ---
Date of Encounter: 06/17/17 Time of Encounter: 10:15 - Assessment and Plan (1) CKD (chronic kidney disease) stage 3, GFR 30-59 ml/min Current Visit: Yes Status: Acute Patient with mild LEONID on CKD. Renal function improved slightly off diuretics. Patient with increased proteinuria of unclear cause, but her greatly elevated RF and hematuria are of some concern. Patient may need a renal biopsy. Will repeat urinalysis as the first one seemed contaminated. (2) Swelling of left lower extremity Current Visit: Yes Status: Acute Lower extremity Doppler ordered. (3) HTN (hypertension) Current Visit: Yes Status: Chronic Blood pressure controlled. Qualifiers: Hypertension type: essential hypertension Qualified Code(s): I10 - Essential (primary) hypertension Subjective Principal diagnosis: LEONID Interval history: Patient seen briefly as she was coming back from a procedure. Had a conversation with the son and prior to her entering the room. Objective - Vital Signs Vital signs: Vital Signs Temp Pulse Resp BP Pulse Ox 06/17/17 22:25 88 141/91 06/17/17 19:12 98.6 F 91 16 135/78 97 06/17/17 15:48 98.6 F 88 14 130/84 96 06/17/17 11:52 97 06/17/17 11:26 98.1 F 104 18 156/84 97 06/17/17 08:01 97 06/17/17 06:51 97.9 F 109 20 156/89 98 06/17/17 04:47 97.9 F 106 15 153/72 91 06/16/17 23:55 98.8 F 95 16 128/78 95 06/16/17 23:46 98 Intake and Output 06/17/17 06/17/17 06/17/17 07:59 15:59 23:59 Intake Total 189 / 189 1295 / 1295 240 / 240 Output Total 400 / 400 450 / 450 1300 / 1300 Balance -211 / -211 845 / 845 -1060 / -1060 Intake: IV Fluids 189 / 189 1295 / 1295 0.9 % Sodium Chloride 1,000 ML 1000 / 1000 @ 75 mls/hr IVC .[id number] [facility] Rx #:[id number] Heparin 25,000 UNIT/500 ML D5W 189 / 189 145 / 145 25,000 unit In 500 ml @ 14 UNIT /KG/HR 23.496 mls/hr IVC . [id number] [facility] Rx#:[id number] Levaquin Premix 750mg/150 mL 150 / 150 750 mg In 150 ml @ 100 mls/hr IVPB DAILY [facility] Rx#:[id number] Oral 0 / 0 240 / 240 Output: Urine 400 / 400 500 / 500 Catheter 450 / 450 800 / 800 Other: Meal Dinner Percent of Meal Consumed 5% Blood Glucose* 150 149 207 - General Appearance General appearance: Present: well-developed, well-nourished - Lab 06/17/17 01:12 06/17/17 01:12 Most recent lab results ABG pH 7.40 pH Units (7.32-7.45) 06/16/17 10:08 ABG pCO2 37 mmHg (35-45) 06/16/17 10:08 ABG pO2 80 mmHg (85-104) L 06/16/17 10:08 ABG HCO3 23 mEq/L (21-27) 06/16/17 10:08 ABG O2 Saturation 96 % (95-98) 06/16/17 10:08 Calcium 9.3 mg/dL (8.6-10.3) 06/17/17 01:12 Magnesium 1.5 mg/dL (1.6-2.6) L 06/17/17 01:12 Urine Creatinine 164 mg/dL 06/17/17 09:05 Urine Sodium 70.4 mEq/L 06/17/17 09:05 Urine Total Protein 238 mg/dL (1-14) H 06/17/17 09:05 Consult Discharge Plan - Plan Referrals: Risa Epperson MD [Primary Care Provider] -
[2017-06-18] MEDS: Ondansetron 4 MG/2 ML VIAL IVP SCH ×4 (00:40→18:17)
[2017-06-18] MEDS: MethylPREDNISolone 40 MG/ML VIAL IVP SCH ×3 (00:40→16:58)
[2017-06-18 04:10] LABS: Hemoglobin 8.1 g/dL (11.5-15.4); Immature Granulocytes % 0.4 % (0-4); Lymphocytes # 0.4 K/mcL (0.6-4.6); Lymphocytes % 5.6 %; Mean Corpuscular HGB Conc 32.4 g/dL (31.6-35.5); Mean Corpuscular Hemoglobin 29.6 pg (28.0-33.3); Mean Corpuscular Volume 91.2 fL (83.0-100.0); Mean Platelet Volume 11.5 fL (9.4-12.4); Monocytes # 0.3 K/mcL (0.0-1.3); Monocytes % 4.3 %; Neutrophils # 7.1 K/mcL (1.6-8.9); Platelet Count 222 K/mcL (140-400); Red Blood Count 2.74 M/mcL (3.82-4.97); Red Cell Distribution Width 15.2 % (11.5-14.5); Segmented Neutrophils % 89.7 %
[2017-06-18] MEDS: traMADol 50 MG TABLET PO PRN (04:36)
[2017-06-18 04:39] LABS: Albumin 3.3 g/dL (3.5-5.7); Albumin/Globulin Ratio 0.9 (1.1-2.2); Bilirubin,Total 0.2 mg/dL (0.3-1.0); Calcium 9.4 mg/dL (8.6-10.3); Globulin 3.8 g/dL (2.4-3.5); Potassium 4.2 mEq/L (3.5-5.1); Total Protein 7.1 g/dL (6.4-8.9)
[2017-06-18 05:41] LABS: Bilirubin,Urine Negative (Negative); Blood,Urine Small (Negative); Clarity,Urine Clear (Clear); Color,Urine Yellow (Yellow); Glucose,Urine (UA) 100 mg/dL (Normal); Ketones,Urine Negative (Negative); Leukocyte Esterase,Urine Negative (Negative); Nitrite,Urine Negative (Negative); Protein,Urine 100 mg/dL (Neg-Trace); Specific Gravity,Urine 1.013 (1.010-1.025); Urobilinogen,Urine Normal (Normal)
[2017-06-18 05:43] LABS: Bacteria,Urine None Seen per hpf (None-Few); Hyaline Casts,Urine None Seen per lpf (None-Few); Squamous Epithelial Cell,Urine Many per lpf (None-Few); WBC,Urine 15-30 per hpf (0-3)
[2017-06-18] MEDS: Levothyroxine 25 MCG TABLET PO SCH (06:26)
[2017-06-18] MEDS: Levofloxacin 750 MG/150 ML 750 MG/150 ML BAG IVPB SCH (08:25)
[2017-06-18] MEDS: Gabapentin 300 MG CAPSULE PO SCH ×2 (08:26→21:44)
[2017-06-18] MEDS: Furosemide 20 MG/2 ML VIAL IVP SCH ×2 (08:26→21:44)
[2017-06-18] MEDS: Multivit/Ca/Min/Fe/FA 1 TAB TABLET PO SCH (08:27)
[2017-06-18] MEDS: Magnesium Oxide 400 MG TABLET PO SCH (08:27)
[2017-06-18] MEDS: BuPROPion XL (24 HR) 150 MG TABLET PO SCH (08:27)
[2017-06-18] MEDS: (Ubidecarenone [Co Q-10] 10 MG) PO SCH (08:27)
[2017-06-18] MEDS: Insulin LISPRO 300 UNITS/3 ML VIAL SQ SCH ×4 (08:37→21:45)
--- NOTE | 2017-06-18 09:14 | Internal Med Progress Note ---
<Juan Funk - Last Filed: 06/18/17 11:59> Date of Encounter: 06/18/17 Time of Encounter: 09:12 - Assessment and plan (1) Chest pain Current Visit: Yes Status: Acute Assessment and plan: Patient's chest pain is improved Cardiology has been consulted-recommended continuation of the nitroglycerin patch. Cardiology feels that this patient is high risk for an LHC due to her CKD. Possible NST if troponins are still negative and the patient's chest pain and shortness of breath improved. Cardiac Diet Echocardiogram showed LV EF of 40-45% with a moderate to large pericardial effusion without evidence of tamponade. We will repeat echocardiogram to evaluate pericardial effusion. CT scan of the chest showed: Findings as above suggesting edema superimposed on top of the interstitial lung disease. Small to moderate pericardial effusion, new. No substantial change otherwise Qualifiers: Chest pain type: precordial pain Qualified Code(s): R07.2 - Precordial pain (2) Pneumonia Current Visit: Yes Status: Suspected Assessment and plan: Concern for possible pneumonia based on CT scan and elevated white count. Patient will be started on IV Levaquin and steroids Pulmonology has been consult. Qualifiers: Pneumonia type: due to unspecified organism Laterality: left Lung location: lower lobe of lung Qualified Code(s): J18.1 - Lobar pneumonia, unspecified organism (3) Pericardial effusion Current Visit: Yes Status: Acute Assessment and plan: Patient as evidence of pericardial effusion on CT scan and Echocardiogram. CT surgery has been consulted Per CT surgery note the patient and he family does not wish to have a pericardial window procedure at this time. Repeat echo will be done to evaluate effusion and determine if this can be managed medically. (4) CAD (coronary artery disease) Current Visit: Yes Status: Acute Assessment and plan: Patient has a history of significant 2 vessel disease. Per medical record it appears that she has occluded LAD and severe disease of her circumflex. Cardiology is following Qualifiers: Coronary Disease-Associated Artery/Lesion type: [place] artery [place] vs. transplanted heart: [place] heart Associated angina: with stable angina Qualified Code(s): I25.118 - Atherosclerotic heart disease of [place] coronary artery with other forms of angina pectoris (5) Diabetes Current Visit: Yes Status: Acute Assessment and plan: Patient is on medium corrective dose insulin Continue with current insulin regimen. 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 Possible lung biopsy Continue with oxygen supplementation (7) CKD (chronic kidney disease) Current Visit: Yes Status: Chronic Assessment and plan: CKD stage III Nephrology has been consulted and is following the patient. Retroperitoneal ultrasound is unremarkable. Qualifiers: Chronic kidney disease stage: stage 2 (mild) Qualified Code(s): N18.2 - Chronic kidney disease, stage 2 (mild) (8) Swelling of left lower extremity Current Visit: Yes Status: Acute Assessment and plan: Patient had swelling in only the LLE yesterday. Today she has 1+ pitting edema in bilateral lower extremities A venous imaging of the left lower extremity to evaluate for DVT. Results pending (9) HTN (hypertension) Current Visit: Yes Status: Chronic Assessment and plan: Chronic continue with current medical management. Qualifiers: Hypertension type: essential hypertension Qualified Code(s): I10 - Essential (primary) hypertension (10) Hyperlipidemia Current Visit: Yes Status: Chronic Assessment and plan: chronic issue Qualifiers: Hyperlipidemia type: pure hypercholesterolemia Qualified Code(s): E78.00 - Pure hypercholesterolemia, unspecified; E78.0 - Pure hypercholesterolemia - Subjective Interval history: Patient states that her chest pain is feeling much better today. States that her breathing has significantly improved. She does state that she is still having the chest pain that she was having earlier. Patient denies any cough or sputum production today. She states that she has had decreased appetite. - Constitutional Vitals: Temp Pulse Resp BP Pulse Ox 97.9 F 93 18 142/86 94 06/18/17 04:22 06/18/17 04:22 06/18/17 04:22 06/18/17 04:22 06/18/17 04:22 General appearance: Present: A&O X 3, morbidly obese, pleasant, answers questions appropriately - Head Head exam: Present: atraumatic, normocephalic - Neck Neck exam general surgery: Present: full ROM, normal inspection, trachea midline - Respiratory Additional comments: Diminished breath sounds bilaterally. - Cardiovascular Cardiovascular exam: Present: RRR, +S1, +S2. Absent: diastolic murmur, gallop, rubs, systolic murmur - GI/Abdominal GI/Abdominal exam: Present: normal bowel sounds, soft, tenderness (Mild tenderness across the upper abdomen.), no peritoneal signs. Absent: distended - Extremities Exam Extremities exam: Present: warm. Absent: cyanotic Additional comments: Patient has 1+ pitting edema bilateral lower extremity. - Neurological Exam Neurological exam: Present: alert, oriented X3, no focal deficits. Absent: facial droop, speech deficit - Psychiatric Psychiatric exam: Present: normal affect, normal mood - Skin Skin exam: Present: dry, intact, warm Internal Medicine: Result - Labs CBC & Chem 7: 06/18/17 03:05 06/18/17 03:05 Labs: Short CBC 06/18/17 Range/Units 03:05 WBC 7.9 (4.3-11.1) K/mcL Hgb 8.1 L D (11.5-15.4) g/dL Hct 25.0 L (35.3-44.9) % Plt Count 222 (140-400) K/mcL Neutrophils # 7.1 (1.6-8.9) K/mcL BMP 06/18/17 03:05 Sodium 131 L Potassium 4.2 Chloride 100 Carbon Dioxide 22 L BUN 29 H Creatinine 1.49 H Glucose 226 H Calcium 9.4 Liver Function 06/18/17 Range/Units 03:05 Total Bilirubin 0.2 L (0.3-1.0) mg/dL AST 16 (13-39) Units/L ALT 16 (7-52) Units/L Alkaline Phosphatase 74 (34-104) Units/L Albumin 3.3 L (3.5-5.7) g/dL Urine 06/18/17 Range/Units 04:32 Urine Color Yellow (Yellow) Urine Clarity Clear (Clear) Urine pH 6.0 (5.0-8.0) pH Units Ur Specific [place] 1.013 (1.010-1.025) Urine Protein 100 H (Neg-Trace) mg/dL Urine Glucose (UA) 100 H (Normal) mg/dL - ABG Interpretation ABG results: ABG ABG pH 7.40 pH Units (7.32-7.45) 06/16/17 10:08 ABG pCO2 37 mmHg (35-45) 06/16/17 10:08 ABG pO2 80 mmHg (85-104) L 06/16/17 10:08 ABG O2 Saturation 96 % (95-98) 06/16/17 10:08 Consult Discharge Plan - Plan Referrals: Risa Epperson MD [Primary Care Provider] - <EmmalennoxSudarshan sylvester H - Last Filed: 06/18/17 13:36> Date of Encounter: 06/18/17 - Constitutional Vitals: Temp Pulse Resp BP Pulse Ox 97.9 F 90 16 125/76 98 06/18/17 12:00 06/18/17 12:00 06/18/17 12:00 06/18/17 12:00 06/18/17 12:00 Internal Medicine: Result - Labs CBC & Chem 7: 06/18/17 03:05 06/18/17 03:05 Labs: Short CBC 06/18/17 Range/Units 03:05 WBC 7.9 (4.3-11.1) K/mcL Hgb 8.1 L D (11.5-15.4) g/dL Hct 25.0 L (35.3-44.9) % Plt Count 222 (140-400) K/mcL Neutrophils # 7.1 (1.6-8.9) K/mcL BMP 06/18/17 03:05 Sodium 131 L Potassium 4.2 Chloride 100 Carbon Dioxide 22 L BUN 29 H Creatinine 1.49 H Glucose 226 H Calcium 9.4 Liver Function 06/18/17 Range/Units 03:05 Total Bilirubin 0.2 L (0.3-1.0) mg/dL AST 16 (13-39) Units/L ALT 16 (7-52) Units/L Alkaline Phosphatase 74 (34-104) Units/L Albumin 3.3 L (3.5-5.7) g/dL Urine 06/18/17 Range/Units 04:32 Urine Color Yellow (Yellow) Urine Clarity Clear (Clear) Urine pH 6.0 (5.0-8.0) pH Units Ur Specific [place] 1.013 (1.010-1.025) Urine Protein 100 H (Neg-Trace) mg/dL Urine Glucose (UA) 100 H (Normal) mg/dL - ABG Interpretation ABG results: ABG ABG pH 7.40 pH Units (7.32-7.45) 06/16/17 10:08 ABG pCO2 37 mmHg (35-45) 06/16/17 10:08 ABG pO2 80 mmHg (85-104) L 06/16/17 10:08 ABG O2 Saturation 96 % (95-98) 06/16/17 10:08 - Impressions Impressions Echocardiogram Limited Views 06/17/17 15:13 Impressions: LVEF 40%. Mildly dilated left ventricle. Global left ventricular systolic dysfunction. Moderate to large circumferential pericardial effusion present. There is no obvious echocardiographic evidence of tamponade in views obtained. Right atrium was not well visualized. Left Ventricular Wall Motion: Rest Echo Findings The apex, apical inferior, mid inferior, basal inferior, apical anterior, mid anterior, basal anterior, apical septal, mid inferior septal, basal inferior septal, apical lateral, mid anterior lateral, basal anterior lateral, mid anterior septal, mid inferior lateral, basal anterior septal and basal inferior lateral tamez were hypokinetic. Findings: Study Quality * Technically sub-optimal due to poor echocardiographic windows. ECG Findings * Normal sinus rhythm. Left Ventricle * LVEF 40%. * Mildly dilated left ventricle. * Global left ventricular systolic dysfunction. Pericardium * Echogenic material adjacent to the right ventricle. * Moderate to large circumferential pericardial effusion present. * There is no echocardiographic evidence of tamponade. IVC * The IVC is not well evaluated. It does not appear dilated. Respiratory variation appears less than 50%. - Attending Attestation Cardiothoracic surgery to decide on possible pericardial window, the patient would consider the option to have a lung biopsy at the same time aquin day #2 I examined this patient and my medical decision-making was reviewed with the Resident Physician. I agree with the documented findings, disposition and treatment plan as described except to the extent set forth below.
--- NOTE | 2017-06-18 09:30 | Pulmonology Consult Note ---
Date of Encounter: 06/18/17 Time of Encounter: 08:20 Assessment and Plan (1) Chest pain Current Visit: Yes Status: Acute Patient continued to have chest pain and cardiology follow-up. Qualifiers: Chest pain type: precordial pain Qualified Code(s): R07.2 - Precordial pain (2) Pulmonary fibrosis Current Visit: Yes Status: Chronic Patient has UIP picture and her CAT scan and previously lung biopsy was discussed with the patient and she wanted to be done in [place] and patient if she will have any surgical procedure that can have access to lung biopsy, then I would recommend to be done at the same time. This was discussed with the patient and her son at the bedside in detail. Also discussed with Dr. Lima. Otherwise supportive care at this time. I will still recommend cardiac workup first before any surgery. (3) Pericardial effusion Current Visit: Yes Status: Acute Patient has been seen by extract operator and cardiothoracic. (4) COPD (chronic obstructive pulmonary disease) Current Visit: Yes Status: Chronic I doubt this is as COPD exacerbation, however it is reasonable empiric treatment and to stop systemic steroid and antibiotics in less than 5 days. Qualifiers: COPD type: unspecified COPD Qualified Code(s): J44.9 - Chronic obstructive pulmonary disease, unspecified History of Present Illness Consult date: 06/18/17 Requesting physician: Sudarshan Stewart Reason for consult: pulmonary fibrosis History of present illness: This is a pleasant 56-year-old female who is known to our clinic and she is having diagnosed with pulmonary fibrosis. Patient was transferred from [facility] due to chest pain and was found to have pericardial effusion. Patient continued to have some chest pain, however she is feeling better and she feels her shortness of breath has improved with current treatment. Patient had this outpatient for insurance qualification 6 minute walk and she did not qualify for oxygen as outpatient and she stated that her condition had deteriorated and was not able to get into the clinic and went to the emergency room where she was found to have abnormal findings. Patient denies any significant productive cough and she has no significant wheezing. Discussion of lung biopsy as outpatient was brought up. Past Med Surg Social Fam HX - Past Medical History Medical history: COPD, diabetes, GERD, hyperlipidemia, hypertension, renal disease Medications and Allergies Albuterol Sulfate [Ventolin Hfa] 1 - 2 puff IH Q4-6H PRN 06/16/17 [History] Atorvastatin Calcium [Lipitor] 80 mg PO HS 06/16/17 [History] Bupropion HCl [Wellbutrin Xl] 300 mg PO DAILY 06/16/17 [History] Gabapentin [Neurontin] 300 mg PO BID 06/16/17 [History] Hydroxychloroquine Sulfate [Plaquenil] 200 mg PO BID 06/16/17 [History] Insulin NPH Hum/Reg Insulin Hm [Humulin 70-30 Vial] 40 unit SQ BID 06/16/17 [ History] Ipratropium/Albuterol Neb [Duoneb] 3 ml IH Q6HR PRN 06/16/17 [History] Levothyroxine Sodium [Levoxyl] 25 mcg PO DAILY 06/16/17 [History] Magnesium Oxide [Magnesium] 400 mg PO DAILY 06/16/17 [History] Metoprolol [Lopressor] 37.5 mg PO BID 06/16/17 [History] Mv,Fe,Min/Lutein [A Thru Z [employer]'s Tablet] 1 tab PO DAILY 06/16/17 [ History] Omeprazole [PriLOSEC] 20 mg PO DAILY 06/16/17 [History] Ubidecarenone [Co Q-10] 10 mg PO DAILY 06/16/17 [History] hydrALAZINE [HydrALAZINE] 10 mg PO TID 06/16/17 [History] 3 Allergy/AdvReac Type Severity Reaction Status Date / Time codeine Allergy Vomiting Verified 06/17/17 07:46 Cortisone Allergy Headache Verified 06/17/17 07:46 methocarbamol [From Robaxin] Allergy See Verified 06/17/17 07:46 Comments sulfasalazine Allergy Rash Verified 06/17/17 07:46 All Systems: The remainder of the systems were reviewed and are negative Physical Examination Vital Signs: Vital Signs, Last 4 Hours Temp Pulse Resp BP Pulse Ox 06/18/17 09:23 98.5 F 89 18 139/76 95 General appearance: no acute distress Eyes: nonicteric ENT: oropharynx moist Mallampati (class): 3 Neck: supple Effort: normal Inspection: other (Patient with obesity) Auscultation: bilateral: rales (Dry crackles) Percussion: bilateral: not dull Cardiovascular: regular rate and rhythm Gastrointestinal: normoactive bowel sounds, non-distended Extremities: no cyanosis, edema normal mental status, non-focal exam mood appropriate Results - Laboratory Findings CBC and BMP: 06/18/17 03:05 06/18/17 03:05 ABG ABG pH 7.40 pH Units (7.32-7.45) 06/16/17 10:08 ABG pCO2 37 mmHg (35-45) 06/16/17 10:08 ABG pO2 80 mmHg (85-104) L 06/16/17 10:08 ABG O2 Saturation 96 % (95-98) 06/16/17 10:08 Abnormal lab findings: Abnormal lab results RBC 2.74 M/mcL (3.82-4.97) L 06/18/17 03:05 Hgb 8.1 g/dL (11.5-15.4) L D 06/18/17 03:05 Hct 25.0 % (35.3-44.9) L 06/18/17 03:05 RDW 15.2 % (11.5-14.5) H 06/18/17 03:05 Lymphocytes # 0.4 K/mcL (0.6-4.6) L 06/18/17 03:05 APTT 47.6 Seconds (26.0-36.0) H 06/17/17 05:03 ABG pO2 80 mmHg (85-104) L 06/16/17 10:08 Sodium 131 mEq/L (136-145) L 06/18/17 03:05 Carbon Dioxide 22 mEq/L (23-29) L 06/18/17 03:05 BUN 29 mg/dL (6-20) H 06/18/17 03:05 Creatinine 1.49 mg/dL (0.60-1.20) H 06/18/17 03:05 Est GFR ( Amer) 44 (> 60) L 06/18/17 03:05 Est GFR (Non-Af Amer) 36 (> 60) L 06/18/17 03:05 Glucose 226 mg/dL (70-105) H 06/18/17 03:05 POC Glucose 207 (58-89) H 06/17/17 21:32 Total Bilirubin 0.2 mg/dL (0.3-1.0) L 06/18/17 03:05 B-Natriuretic Peptide 177 pg/mL (Less than 100) H 06/16/17 09:57 Albumin 3.3 g/dL (3.5-5.7) L 06/18/17 03:05 Globulin 3.8 g/dL (2.4-3.5) H 06/18/17 03:05 Albumin/Globulin Ratio 0.9 (1.1-2.2) L 06/18/17 03:05 Triglycerides 328 mg/dL (< 150) H 06/17/17 01:12 VLDL Cholesterol, Calc 66 mg/dL (< 31) H 06/17/17 01:12 HDL Cholesterol 23 mg/dL (40-59) L 06/17/17 01:12 Cholesterol/HDL Ratio 6.3 (0-4.9) H 06/17/17 01:12 Urine Protein 100 mg/dL (Neg-Trace) H 06/18/17 04:32 Urine Glucose (UA) 100 mg/dL (Normal) H 06/18/17 04:32 Urine Blood Small (Negative) H 06/18/17 04:32 Urine Microscopic RBC 3-5 per hpf (0-3) H 06/18/17 04:32 Urine Microscopic WBC 15-30 per hpf (0-3) H 06/18/17 04:32 Ur Squamous Epith Cells Many per lpf (None-Few) H 06/18/17 04:32 Protein/Creatinin Ratio 1.45 mg/mg (0.00-0.20) H 06/17/17 09:05 Urine Total Protein 238 mg/dL (1-14) H 06/17/17 09:05 Rheumatoid Factor > 120 IU/mL (Less than 14) H 06/17/17 01:12 - Diagnostic Findings CT scan - chest: report reviewed, image reviewed - Clinical Findings Intake & Output: Intake & Output 06/17/17 06/18/17 06/18/17 23:59 07:59 15:59 Intake Total 240 / 240 300 / 300 Output Total 1700 / 1700 400 / 400 Balance -1460 / -1460 -100 / -100 Consult Discharge Plan - Plan Referrals: Risa Epperson MD [Primary Care Provider] -
[2017-06-18] MEDS: Ipratropium/Albuterol Neb 3 ML IH SCH ×3 (10:18→23:46)
[2017-06-18] MEDS: Budesonide/Formoterol 160/4.5 MDI IH SCH ×2 (10:18→23:46)
--- NOTE | 2017-06-18 10:55 | Nephrology Progress Note ---
Date of Encounter: 06/18/17 Time of Encounter: 10:47 - Assessment and Plan (1) CKD (chronic kidney disease) stage 3, GFR 30-59 ml/min Current Visit: Yes Status: Acute Scr 1.49,GFR 36 Renal function improving Repeat urinalysis shows 100 protein again today Avoid nephrotoxins if possible (2) Chest pain Current Visit: Yes Status: Acute per cardiology/primary team Qualifiers: Chest pain type: precordial pain Qualified Code(s): R07.2 - Precordial pain (3) COPD (chronic obstructive pulmonary disease) Current Visit: Yes Status: Chronic per pulmonary/primary team Qualifiers: COPD type: unspecified COPD Qualified Code(s): J44.9 - Chronic obstructive pulmonary disease, unspecified Subjective Principal diagnosis: LEONID Interval history: Patient seen and examined. Getting ready to take a shower Objective - Vital Signs Vital signs: Vital Signs Temp Pulse Resp BP Pulse Ox 06/18/17 10:18 16 97 06/18/17 09:23 98.5 F 89 18 139/76 95 06/18/17 04:22 97.9 F 93 18 142/86 94 06/18/17 00:04 98.6 F 86 18 134/80 97 06/17/17 22:25 88 141/91 06/17/17 19:12 98.6 F 91 16 135/78 97 06/17/17 15:48 98.6 F 88 14 130/84 96 06/17/17 11:52 97 06/17/17 11:26 98.1 F 104 18 156/84 97 Intake and Output 06/17/17 06/18/17 06/18/17 23:59 07:59 15:59 Intake Total 240 / 240 300 / 300 Output Total 1700 / 1700 400 / 400 Balance -1460 / -1460 -100 / -100 Intake: Oral 240 / 240 300 / 300 Output: Urine 900 / 900 400 / 400 Catheter 800 / 800 Other: Meal Dinner Breakfast Percent of Meal Consumed 5% 75% # Voids 1 Blood Glucose* 207 275 - General Appearance General appearance: Present: obese EENT: Present: ATNC, mucous membranes moist, hearing intact, vision intact Neck: Present: supple Respiratory: Present: clear Cardiology: Present: no edema, normal S1, normal S2 Gastrointestinal: Present: no tenderness, no guarding Integumentary: Present: warm and dry Neurologic: Present: alert and oriented x3 Psychiatric: Present: mood/affect appropriate, cooperative - Lab 06/18/17 03:05 06/18/17 03:05 Most recent lab results ABG pH 7.40 pH Units (7.32-7.45) 06/16/17 10:08 ABG pCO2 37 mmHg (35-45) 06/16/17 10:08 ABG pO2 80 mmHg (85-104) L 06/16/17 10:08 ABG HCO3 23 mEq/L (21-27) 06/16/17 10:08 ABG O2 Saturation 96 % (95-98) 06/16/17 10:08 Calcium 9.4 mg/dL (8.6-10.3) 06/18/17 03:05 Magnesium 2.0 mg/dL (1.6-2.6) 06/18/17 03:05 Urine Creatinine 164 mg/dL 06/17/17 09:05 Urine Sodium 70.4 mEq/L 06/17/17 09:05 Urine Total Protein 238 mg/dL (1-14) H 06/17/17 09:05 Consult Discharge Plan - Plan Referrals: Risa Epperson MD [Primary Care Provider] -
--- NOTE | 2017-06-18 15:12 | Cardiothoracic Progress Note ---
Date of Encounter: 06/18/17 Time of Encounter: 15:06 - Assessment and plan (1) Pulmonary fibrosis Current Visit: Yes Status: Chronic Repeat echocardiogram is pending. The initial echocardiogram was limited, but showed no signs of tamponade. The CT scan showed a small pericardial effusion. Cardiology feels that the effusion may be secondary to medication and changing the medication may result in its resolution. I agree that the patient shows no clinical signs of tamponade and we can watch this one at this point. She will need a lung biopsy at some point in preparation for eventual open lung biopsy. She is at high risk for general anesthesia given her severe pulmonary fibrosis. She was on 3 L of oxygen by nasal prong prior to coming in continuously. She does have a history of a previous myocardial infarction. She does have diabetes, hypertension and hypercholesterolemia and was admitted with chest pain. She has heavy calcifications of her coronary arteries on CT scan. Her last cardiac catheterization was several years ago. It would be best if she could have cardiac catheterization prior to any general anesthesia. - Subjective Interval history: The patient had some mild chest pain while showering. She has no other complaints. Vital Signs, Last 4 Hours Temp Pulse Resp BP Pulse Ox 06/18/17 12:00 97.9 F 90 16 125/76 98 Oxgyen Flow Rate Oxygen Flow Rate (LPM) 2 Weight 06/16/17 06/17/17 06/18/17 23:59 23:59 23:59 Weight 83.915 kg Lungs have scattered rales and rhonchi is. No jugular venous distention. She has good heart tones. No murmurs, gallops or rubs. No pulsus paradoxus. - Labs 06/18/17 03:05 06/18/17 03:05 Lab Results, Last 24 hours 06/18/17 06/18/17 03:05 03:05 WBC 7.9 Hgb 8.1 L D Hct 25.0 L Plt Count 222 Sodium 131 L Potassium 4.2 Chloride 100 Carbon Dioxide 22 L BUN 29 H Creatinine 1.49 H Glucose 226 H Calcium 9.4 Magnesium 2.0 Total Bilirubin 0.2 L AST 16 ALT 16 Alkaline Phosphatase 74 Consult Discharge Plan - Plan Referrals: Risa Epperson MD [Primary Care Provider] -
--- NOTE | 2017-06-18 15:56 | Cardiology Progress Note ---
Date of Encounter: 06/18/17 Time of Encounter: 15:50 Assessment and Plan (1) Chest pain Current Visit: Yes Status: Acute pleuritic with negative Cl x 2. No LHC unless convincing ACS due to CKD. No diuresis unless Vlume overload on Cxray or non contrast CT, bibasilar crackles can be UIP. Continue NTG patch and titrate to SBP of 100 mmHg 56 YOF with no tamponade pericardial effusion on ECHO. Possibly secondary to hydralazine. Will change to CCB if needed. I do not feel with her underlying lung fibrosis that a pericardiocentesis is needed at this time as she is euvolemic and breathing much better. I would be afraid to set her back with surgery. I do agree she needs an ischemic work up but since she had negative trops and an unremarkable EKG a LHC can be postponed. She is at high risk for contrast nephropathy with a baseline CKD and patient strongly against HD. She may need a stress test as an outpatient prior to having a lung biopsy or having the pericardial window. Qualifiers: Chest pain type: pleurodynia Qualified Code(s): R07.81 - Pleurodynia (2) CAD (coronary artery disease) Current Visit: Yes Status: Acute Known severe 2 vessel cad as above. High risk LHC due to CKD, would consider NST if trops continue to be negative and patients chest pain/SOB improve. This would be ideal prior to pericardial window or lung biopsy Qualifiers: Coronary Disease-Associated Artery/Lesion type: [place] artery [place] vs. transplanted heart: [place] heart Associated angina: with stable angina Qualified Code(s): I25.118 - Atherosclerotic heart disease of [place] coronary artery with other forms of angina pectoris Discussion w patient/family: The assessment and plan as outlined above was discussed with the patient and/or family members who expressed understanding and agreement. All questions were answered. Thank you for involving us in the care of your patient. Please call with any questions. Subjective Principal diagnosis: Pericardial Effusion Interval history: feels better able to breath much better, no worsening renal function with gentle diuresis Objective Vital Signs, Last 4 Hours Temp Pulse Resp BP Pulse Ox 06/18/17 12:00 97.9 F 90 16 125/76 98 Results 06/18/17 03:05 06/18/17 03:05 Lab Results 0306/18/17 06/18/17 03:05 03:05 14:37 WBC 7.9 Hgb 8.1 L D Hct 25.0 L Plt Count 222 APTT 27.3 Sodium 131 L Potassium 4.2 Chloride 100 Carbon Dioxide 22 L BUN 29 H Creatinine 1.49 H Glucose 226 H Calcium 9.4 Magnesium 2.0 Total Bilirubin 0.2 L AST 16 ALT 16 Alkaline Phosphatase 74 Consult Discharge Plan - Plan Referrals: Risa Epperson MD [Primary Care Provider] -
[2017-06-18 17:37] LABS: Hematocrit 26.8 % (35.3-44.9); Hemoglobin 8.6 g/dL (11.5-15.4)
[2017-06-18 19:21] LABS: Bilirubin,Urine Negative (Negative); Blood,Urine Small (Negative); Clarity,Urine Clear (Clear); Color,Urine Yellow (Yellow); Glucose,Urine (UA) 250 mg/dL (Normal); Ketones,Urine Negative (Negative); Leukocyte Esterase,Urine Negative (Negative); Nitrite,Urine Negative (Negative); Protein,Urine 100 mg/dL (Neg-Trace); Specific Gravity,Urine 1.019 (1.010-1.025); Urobilinogen,Urine Normal (Normal)
[2017-06-18 19:24] LABS: Bacteria,Urine None Seen per hpf (None-Few); Hyaline Casts,Urine None Seen per lpf (None-Few); Squamous Epithelial Cell,Urine Moderate per lpf (None-Few); WBC,Urine 0-3 per hpf (0-3)
[2017-06-18 19:28] LABS: Protein/Creatinine Ratio,Urine 3.05 mg/mg (0.00-0.20)
[2017-06-18] MEDS: Nitroglycerin 0.2 MG PATCH.TD24 TD SCH (22:01)
[2017-06-19] MEDS: Ondansetron 4 MG/2 ML VIAL IVP SCH ×5 (01:18→23:19)
[2017-06-19] MEDS: traMADol 50 MG TABLET PO PRN ×2 (01:22→21:03)
[2017-06-19] MEDS: MethylPREDNISolone 40 MG/ML VIAL IVP SCH ×3 (01:23→19:40)
[2017-06-19 02:12] LABS: Hematocrit 29.9 % (35.3-44.9); Hemoglobin 9.4 g/dL (11.5-15.4); Immature Granulocytes % 0.7 % (0-4); Lymphocytes # 0.4 K/mcL (0.6-4.6); Lymphocytes % 5.8 %; Mean Corpuscular HGB Conc 31.4 g/dL (31.6-35.5); Mean Corpuscular Hemoglobin 29.5 pg (28.0-33.3); Mean Corpuscular Volume 93.7 fL (83.0-100.0); Mean Platelet Volume 11.9 fL (9.4-12.4); Monocytes # 0.5 K/mcL (0.0-1.3); Monocytes % 7.2 %; Neutrophils # 6.2 K/mcL (1.6-8.9); Nucleated Red Blood Cells 0.4 /100 WBC (0); Platelet Count 230 K/mcL (140-400); Red Blood Count 3.19 M/mcL (3.82-4.97); Segmented Neutrophils % 86.3 %
[2017-06-19 02:33] LABS: Albumin 3.7 g/dL (3.5-5.7); Albumin/Globulin Ratio 0.9 (1.1-2.2); Bilirubin,Total 0.2 mg/dL (0.3-1.0); Calcium 9.9 mg/dL (8.6-10.3); Globulin 4.1 g/dL (2.4-3.5); Potassium 3.8 mEq/L (3.5-5.1); Total Protein 7.8 g/dL (6.4-8.9)
[2017-06-19] MEDS: Ipratropium/Albuterol Neb 3 ML IH SCH ×4 (04:47→21:42)
[2017-06-19 05:08] LABS: Hepatitis A Antibody IgM Nonreactive (Nonreactive); Hepatitis B Core IgM Nonreactive (Nonreactive); Hepatitis B Surface Antigen Nonreactive (Nonreactive); Hepatitis C Virus Antibody Nonreactive (Nonreactive)
[2017-06-19] MEDS: Levothyroxine 25 MCG TABLET PO SCH (06:23)
[2017-06-19 07:43] LABS: Complement Component 3 222 mg/dL (88-201); Complement Component 4 38 mg/dL (10-40)
--- NOTE | 2017-06-19 07:50 | Cardiothoracic Progress Note ---
Date of Encounter: 06/19/17 Time of Encounter: 07:48 - Assessment and plan (1) Pulmonary fibrosis Current Visit: Yes Status: Chronic The echocardiogram read yesterday revealed no signs of tamponade. I agreed that we can continue to watch this pericardial effusion. Apparently, she eventually will need open lung biopsy or eventual lung transplant. Prior to this, she would require cardiac catheterization. This would enable her to undergo anesthesia and surgery. - Subjective Interval history: The patient has no complaints. Vital Signs, Last 4 Hours Temp Pulse Resp BP Pulse Ox 06/19/17 06:56 97.8 F 89 16 158/80 94 06/19/17 04:47 16 99 Oxgyen Flow Rate Oxygen Flow Rate (LPM) 3 Lungs have scattered rales and rhonchi. Her vital signs are stable. No jugular venous distention. Good heart tones. No murmurs, gallops or rubs. No pulsus paradoxus. - Labs 06/19/17 01:44 06/19/17 01:44 Lab Results, Last 24 hours 06/18/17 06/18/17 06/19/17 14:37 17:11 01:44 WBC 7.2 Hgb 8.6 L 9.4 L Hct 26.8 L 29.9 L Plt Count 230 APTT 27.3 Sodium Potassium Chloride Carbon Dioxide BUN Creatinine Glucose Calcium Total Bilirubin AST ALT Alkaline Phosphatase 06/19/17 01:44 WBC Hgb Hct Plt Count APTT Sodium 131 L Potassium 3.8 Chloride 97 L Carbon Dioxide 20 L BUN 38 H Creatinine 1.63 H Glucose 321 H Calcium 9.9 Total Bilirubin 0.2 L AST 59 H ALT 61 H Alkaline Phosphatase 85 Consult Discharge Plan - Plan Referrals: Risa Epperson MD [Primary Care Provider] -
[2017-06-19] MEDS: Gabapentin 300 MG CAPSULE PO SCH ×2 (07:53→20:56)
[2017-06-19] MEDS: Magnesium Oxide 400 MG TABLET PO SCH (07:53)
[2017-06-19] MEDS: Furosemide 20 MG/2 ML VIAL IVP SCH ×2 (07:53→20:55)
[2017-06-19] MEDS: BuPROPion XL (24 HR) 150 MG TABLET PO SCH (07:54)
[2017-06-19] MEDS: Multivit/Ca/Min/Fe/FA 1 TAB TABLET PO SCH (07:54)
[2017-06-19] MEDS: (Ubidecarenone [Co Q-10] 10 MG) PO SCH (07:54)
[2017-06-19] MEDS: Insulin LISPRO 300 UNITS/3 ML VIAL SQ SCH ×2 (07:55→11:46)
--- NOTE | 2017-06-19 08:06 | Pulmonology Progress Note ---
Date of Encounter: 06/19/17 Time of Encounter: 07:50 Assessment and Plan (1) Chest pain Current Visit: Yes Status: Acute Qualifiers: Chest pain type: pleurodynia Qualified Code(s): R07.81 - Pleurodynia (2) Pulmonary fibrosis Current Visit: Yes Status: Chronic I have discussed with the patient and also with cardiothoracic surgeon about question of the lung biopsy and was not recommended at this time until she is cleared by the packaging assembler and this can even be done as outpatient. I will lower her systemic steroid which hopefully will have better control on her blood glucose and this can be tapered. Please call for any questions. (3) Pericardial effusion Current Visit: Yes Status: Acute (4) COPD (chronic obstructive pulmonary disease) Current Visit: Yes Status: Chronic Qualifiers: COPD type: unspecified COPD Qualified Code(s): J44.9 - Chronic obstructive pulmonary disease, unspecified Subjective Principal diagnosis: Pericardial Effusion Interval history: Patient is complaining of her blood sugar has not been under control Objective PUL Vital signs: Last Vital Signs Temp 97.8 F 06/19/17 06:56 Pulse 89 06/19/17 06:56 Resp 16 06/19/17 06:56 BP 158/80 06/19/17 06:56 Pulse Ox 94 06/19/17 06:56 General appearance: no acute distress Eyes: nonicteric ENT: oropharynx moist Mallampati (class): 3 Neck: supple Effort: normal Auscultation: bilateral: rales (Dry crackles in the bases) Percussion: bilateral: not dull Cardiovascular: regular rate and rhythm Gastrointestinal: normoactive bowel sounds Extremities: no cyanosis normal mental status, non-focal exam mood appropriate Results - Laboratory Findings CBC and BMP: 06/19/17 01:44 06/19/17 01:44 ABG ABG pH 7.40 pH Units (7.32-7.45) 06/16/17 10:08 ABG pCO2 37 mmHg (35-45) 06/16/17 10:08 ABG pO2 80 mmHg (85-104) L 06/16/17 10:08 ABG O2 Saturation 96 % (95-98) 06/16/17 10:08 Abnormal lab findings: Abnormal lab results RBC 3.19 M/mcL (3.82-4.97) L 06/19/17 01:44 Hgb 9.4 g/dL (11.5-15.4) L 06/19/17 01:44 Hct 29.9 % (35.3-44.9) L 06/19/17 01:44 MCHC 31.4 g/dL (31.6-35.5) L 06/19/17 01:44 RDW 15.0 % (11.5-14.5) H 06/19/17 01:44 Lymphocytes # 0.4 K/mcL (0.6-4.6) L 06/19/17 01:44 Nucleated RBCs/100 WBC 0.4 /100 WBC (0) H 06/19/17 01:44 ABG pO2 80 mmHg (85-104) L 06/16/17 10:08 Sodium 131 mEq/L (136-145) L 06/19/17 01:44 Chloride 97 mEq/L (98-107) L 06/19/17 01:44 Carbon Dioxide 20 mEq/L (23-29) L 06/19/17 01:44 BUN 38 mg/dL (6-20) H 06/19/17 01:44 Creatinine 1.63 mg/dL (0.60-1.20) H 06/19/17 01:44 Est GFR ( Amer) 39 (> 60) L 06/19/17 01:44 Est GFR (Non-Af Amer) 32 (> 60) L 06/19/17 01:44 Glucose 321 mg/dL (70-105) H 06/19/17 01:44 POC Glucose 306 (58-89) H 06/18/17 20:21 Total Bilirubin 0.2 mg/dL (0.3-1.0) L 06/19/17 01:44 AST 59 Units/L (13-39) H 06/19/17 01:44 ALT 61 Units/L (7-52) H 06/19/17 01:44 B-Natriuretic Peptide 177 pg/mL (Less than 100) H 06/16/17 09:57 Globulin 4.1 g/dL (2.4-3.5) H 06/19/17 01:44 Albumin/Globulin Ratio 0.9 (1.1-2.2) L 06/19/17 01:44 Triglycerides 328 mg/dL (< 150) H 06/17/17 01:12 VLDL Cholesterol, Calc 66 mg/dL (< 31) H 06/17/17 01:12 HDL Cholesterol 23 mg/dL (40-59) L 06/17/17 01:12 Cholesterol/HDL Ratio 6.3 (0-4.9) H 06/17/17 01:12 Urine Protein 100 mg/dL (Neg-Trace) H 06/18/17 19:13 Urine Glucose (UA) 250 mg/dL (Normal) H 06/18/17 19:13 Urine Blood Small (Negative) H 06/18/17 19:13 Urine Microscopic RBC 3-5 per hpf (0-3) H 06/18/17 19:13 Ur Squamous Epith Cells Moderate per lpf (None-Few) H 06/18/17 19:13 Protein/Creatinin Ratio 3.05 mg/mg (0.00-0.20) H 06/18/17 19:13 Urine Total Protein 183 mg/dL (1-14) H 06/18/17 19:13 Rheumatoid Factor > 120 IU/mL (Less than 14) H 06/17/17 01:12 Complement C3 222 mg/dL (88-201) H 06/16/17 17:56 Consult Discharge Plan - Plan Referrals: Risa Epperson MD [Primary Care Provider] -
--- NOTE | 2017-06-19 09:47 | Electrocardiograph Report ---
[place] [id number] Test Date: 2017-06-16 Pat Name: Malina García Department: 114 Room: [facility] Gender: F Photoflash Powder Mixer: [id number] : 1960 Requested By: Ibrahima Mario Order Number: [id number] Reading MD: Marcelo Dempsey DO Measurements Intervals [place] Rate: 110 P: 49 DC: 175 QRS: 4 QRSD: 90 T: 28 QT: 305 QTc: 370 Interpretive Statements SINUS TACHYCARDIA POSSIBLE LEFT ATRIAL ENLARGEMENT LOW QRS VOLTAGE IN PRECORDIAL LEADS POSSIBLE INFERIOR MYOCARDIAL INFARCTION, PROBABLY OLD Electronically Signed On 06-19-2017 9:45:49 EST by Marcelo Dempsey DO
--- NOTE | 2017-06-19 10:55 | Nephrology Progress Note ---
Date of Encounter: 06/19/17 Time of Encounter: 09:40 - Assessment and Plan (1) CKD (chronic kidney disease) stage 3, GFR 30-59 ml/min Current Visit: Yes Status: Chronic She has CKD stage III, and seems to be near her baseline based upon labs from January 2017. I suspect the most likely etiology for her CKD and proteinuria would be the diabetes and hypertension plus obesity. So she is overall relatively stable in terms of her renal function. She has no indications for dialysis, and since she is not in the nephrotic range with severe proteinuria or severe edema (in fact she has no edema), I do not recommend inpatient renal biopsy at this time. If the patient needs a heart catheterization, she is near her baseline renal function. If a heart cath is going to proceed, I would recommend normal saline vs bicarbonate-based IV fluids on the day of the heart catheter, and +/- acetylcysteine. Continue to follow a renal protective strategy is able. Dose medications by GFR. We will continue to follow with you. (2) Hyponatremia Current Visit: Yes Status: Acute We will check TSH, cortisol, urine sodium and spot urine osmolality. She did not have edema on my exam, so I recommend using caution with the IV loop diuretics so as to avoid a prerenal insult. (3) Type 2 diabetes mellitus with diabetic chronic kidney disease Current Visit: Yes Status: Chronic Qualifiers: Chronic kidney disease stage: stage 3 (moderate) Qualified Code(s): E11.22 - Type 2 diabetes mellitus with diabetic chronic kidney disease; N18.3 - Chronic kidney disease, stage 3 (moderate); N18.3 - Chronic kidney disease, stage 3 (moderate) (4) HTN (hypertension) Current Visit: Yes Status: Chronic Agree with the BB. Will hold off from adding an JARON or ARM for the proteinuria until a LHC is decided or not. Qualifiers: Hypertension type: essential hypertension Qualified Code(s): I10 - Essential (primary) hypertension (5) Obesity Current Visit: Yes Status: Chronic Qualifiers: Obesity type: unspecified obesity type Obesity classification: adult class 1 (BMI 30 - 34.9) Serious obesity comorbidity presence: without serious comorbidity Qualified Code(s): E66.9 - Obesity, unspecified Subjective Principal diagnosis: Pericardial Effusion Interval history: Patient was seen and examined earlier today. She did not affirm diminished appetite, swelling, nausea, or vomiting (so no uremic symptoms). Objective - Vital Signs Vital signs: Vital Signs Temp Pulse Resp BP Pulse Ox 06/19/17 06:56 97.8 F 89 16 158/80 94 06/19/17 04:47 16 99 06/19/17 01:36 98.4 F 88 18 123/66 96 06/18/17 23:46 16 96 06/18/17 20:14 98.3 F 91 18 148/74 97 06/18/17 16:23 98.0 F 89 16 139/74 97 06/18/17 16:21 16 125/76 98 06/18/17 12:00 97.9 F 90 16 125/76 98 Intake and Output 06/18/17 06/19/17 06/19/17 23:59 07:59 15:59 Intake Total 240 / 240 Balance 240 / 240 Intake: Oral 240 / 240 Other: Meal Breakfast Percent of Meal Consumed 100% Stool Size Moderate Stool Consistency loose liquid Stool Color Brown # Voids 1 # Bowel Movements 1 Blood Glucose* 306 384 - General Appearance General appearance: Present: well-developed, well-nourished, appears started age , obese EENT: Present: ATNC, PERRL, mucous membranes moist Neck: Present: supple Respiratory: Present: rhonchi (In the bilateral bases) Cardiology: Present: no edema, regular rate, regular rhythm Gastrointestinal: Present: normoactive bowel sounds, no tenderness, no guarding , obese Integumentary: Present: warm and dry Neurologic: Present: no focal deficit, no asterixis, alert and oriented x3 Musculoskeletal: Present: no deformities, no erythema, no cyanosis Psychiatric: Present: mood/affect appropriate, cooperative - Lab 06/19/17 01:44 06/19/17 14:06 Most recent lab results ABG pH 7.40 pH Units (7.32-7.45) 06/16/17 10:08 ABG pCO2 37 mmHg (35-45) 06/16/17 10:08 ABG pO2 80 mmHg (85-104) L 06/16/17 10:08 ABG HCO3 23 mEq/L (21-27) 06/16/17 10:08 ABG O2 Saturation 96 % (95-98) 06/16/17 10:08 Calcium 9.9 mg/dL (8.6-10.3) 06/19/17 01:44 Magnesium 2.0 mg/dL (1.6-2.6) 06/18/17 03:05 Urine Creatinine 60 mg/dL 06/18/17 19:13 Urine Sodium 70.4 mEq/L 06/17/17 09:05 Urine Total Protein 183 mg/dL (1-14) H 06/18/17 19:13 Consult Discharge Plan - Plan Referrals: Risa Epperson MD [Primary Care Provider] -
[2017-06-19] MEDS: Budesonide/Formoterol 160/4.5 MDI IH SCH ×2 (11:00→21:42)
--- NOTE | 2017-06-19 11:33 | Internal Med Progress Note ---
<Jaylon Faulkner - Last Filed: 06/19/17 13:21> Date of Encounter: 06/19/17 Time of Encounter: 09:05 - Assessment and plan (1) Acute hyperglycemia Current Visit: Yes Status: Acute Assessment and plan: BG greater 500 after additional insulin. Plan to start insulin drip. Will transfer patient form 3NE to 2nd floor. (2) Pneumonia Current Visit: Yes Status: Suspected Assessment and plan: Concern for possible pneumonia based on CT scan and elevated white count. Patient on IV Levaquin (day 3) and tapering IV steroids. Pulmonology consulted, recommending tapering steroids. Noted patient on reasonable empiric tx, but to d/c abx and steroids by 5 days duration. Qualifiers: Pneumonia type: due to unspecified organism Laterality: left Lung location: lower lobe of lung Qualified Code(s): J18.1 - Lobar pneumonia, unspecified organism (3) Pericardial effusion Current Visit: Yes Status: Acute Assessment and plan: Patient as evidence of pericardial effusion on CT scan and Echocardiogram. CT surgery consulted, continue to observe at this time. (4) Pulmonary fibrosis Current Visit: Yes Status: Chronic Assessment and plan: Patient is a chronic history of pulmonary fibrosis Pulmonology consulted for lung biopsy, not recommended at this time until she is cleared by the tire installer, noted this can be done as outpatient. Continue with oxygen supplementation (5) Chest pain Current Visit: Yes Status: Resolved Assessment and plan: Patient's chest pain is improved Cardiology consulted-recommended continuation of the nitroglycerin patch. Cardiology feels that this patient is high risk for an LHC due to her CKD. Possible NST if troponins are still negative and the patient's chest pain and shortness of breath improved. Cardiac Diet Echocardiogram showed LV EF of 40-45% with a moderate to large pericardial effusion without evidence of tamponade. CT scan of the chest showed: Findings as above suggesting edema superimposed on top of the interstitial lung disease. Small to moderate pericardial effusion, new. No substantial change otherwise Qualifiers: Chest pain type: pleurodynia Qualified Code(s): R07.81 - Pleurodynia (6) CAD (coronary artery disease) Current Visit: Yes Status: Chronic Assessment and plan: Patient has a history of significant 2 vessel disease. Per medical record it appears that she has occluded LAD and severe disease of her circumflex. Cardiology consulted; High risk LHC due to CKD, would consider NST if trops continue to be negative and patients chest pain/SOB improve. This would be ideal prior to pericardial window or lung biopsy Qualifiers: Coronary Disease-Associated Artery/Lesion type: [place] artery [place] vs. transplanted heart: [place] heart Associated angina: with stable angina Qualified Code(s): I25.118 - Atherosclerotic heart disease of [place] coronary artery with other forms of angina pectoris (7) CKD (chronic kidney disease) Current Visit: Yes Status: Chronic Assessment and plan: CKD stage III Nephrology consulted and is following the patient. Retroperitoneal ultrasound is unremarkable. Cr and GFR slowly improving. Qualifiers: Chronic kidney disease stage: stage 3 (moderate) Qualified Code(s): N18.3 - Chronic kidney disease, stage 3 (moderate) (8) Diabetes Current Visit: Yes Status: Acute Assessment and plan: Patient is on medium corrective dose insulin Continue with current insulin regimen. Update: BG today is uncontrolled. Will review medications, will likely need to adjust insulin. Qualifiers: Diabetes mellitus type: other specified (including ILIR) Diabetes mellitus complication status: with unspecified complications Diabetes mellitus [facility] insulin use: unspecified shake cutter insulin use status Qualified Code(s): E13.8 - Other specified diabetes mellitus with unspecified complications (9) HTN (hypertension) Current Visit: Yes Status: Chronic Assessment and plan: Chronic continue with current medical management. Qualifiers: Hypertension type: essential hypertension Qualified Code(s): I10 - Essential (primary) hypertension (10) Hyperlipidemia Current Visit: Yes Status: Chronic Assessment and plan: chronic issue Qualifiers: Hyperlipidemia type: pure hypercholesterolemia Qualified Code(s): E78.00 - Pure hypercholesterolemia, unspecified; E78.0 - Pure hypercholesterolemia - Subjective Interval history: Patient seen and examined at bedside. Denies any acute distress, currently on 3L O2 (which in home oxygen level). Patient's main concern today is to know the plan, states Pulm/CTS say she need LHC however cardio notes states not good candidate for LHC. - Constitutional Vitals: Temp Pulse Resp BP Pulse Ox 97.8 F 89 16 158/80 94 06/19/17 06:56 06/19/17 06:56 06/19/17 06:56 06/19/17 06:56 06/19/17 06:56 General appearance: Present: A&O X 3, morbidly obese, pleasant, answers questions appropriately Internal Medicine: Result - Labs CBC & Chem 7: 06/19/17 01:44 06/19/17 01:44 Labs: Short CBC 06/18/17 06/19/17 Range/Units 17:11 01:44 WBC 7.2 (4.3-11.1) K/mcL Hgb 8.6 L 9.4 L (11.5-15.4) g/dL Hct 26.8 L 29.9 L (35.3-44.9) % Plt Count 230 (140-400) K/mcL Neutrophils # 6.2 (1.6-8.9) K/mcL BMP 06/19/17 01:44 Sodium 131 L Potassium 3.8 Chloride 97 L Carbon Dioxide 20 L BUN 38 H Creatinine 1.63 H Glucose 321 H Calcium 9.9 Liver Function 06/19/17 Range/Units 01:44 Total Bilirubin 0.2 L (0.3-1.0) mg/dL AST 59 H (13-39) Units/L ALT 61 H (7-52) Units/L Alkaline Phosphatase 85 (34-104) Units/L Albumin 3.7 (3.5-5.7) g/dL Urine 06/18/17 Range/Units 19:13 Urine Color Yellow (Yellow) Urine Clarity Clear (Clear) Urine pH 6.0 (5.0-8.0) pH Units Ur Specific Point Clear 1.019 (1.010-1.025) Urine Protein 100 H (Neg-Trace) mg/dL Urine Glucose (UA) 250 H (Normal) mg/dL - ABG Interpretation ABG results: ABG ABG pH 7.40 pH Units (7.32-7.45) 06/16/17 10:08 ABG pCO2 37 mmHg (35-45) 06/16/17 10:08 ABG pO2 80 mmHg (85-104) L 06/16/17 10:08 ABG O2 Saturation 96 % (95-98) 06/16/17 10:08 - Impressions Impressions Echocardiogram Limited Views 06/17/17 15:13 Impressions: LVEF 40%. Mildly dilated left ventricle. Global left ventricular systolic dysfunction. Moderate to large circumferential pericardial effusion present. There is no obvious echocardiographic evidence of tamponade in views obtained. Right atrium was not well visualized. Left Ventricular Wall Motion: Rest Echo Findings The apex, apical inferior, mid inferior, basal inferior, apical anterior, mid anterior, basal anterior, apical septal, mid inferior septal, basal inferior septal, apical lateral, mid anterior lateral, basal anterior lateral, mid anterior septal, mid inferior lateral, basal anterior septal and basal inferior lateral tamez were hypokinetic. Findings: Study Quality * Technically sub-optimal due to poor echocardiographic windows. ECG Findings * Normal sinus rhythm. Left Ventricle * LVEF 40%. * Mildly dilated left ventricle. * Global left ventricular systolic dysfunction. Pericardium * Echogenic material adjacent to the right ventricle. * Moderate to large circumferential pericardial effusion present. * There is no echocardiographic evidence of tamponade. IVC * The IVC is not well evaluated. It does not appear dilated. Respiratory variation appears less than 50%. Consult Discharge Plan - Plan Referrals: Risa Epperson MD [Primary Care Provider] - <Sudarshan Stewart H - Last Filed: 06/19/17 13:46> Date of Encounter: 06/19/17 - Constitutional Vitals: Temp Pulse Resp BP Pulse Ox 97.8 F 68 16 130/70 98 06/19/17 11:00 06/19/17 11:00 06/19/17 11:00 06/19/17 11:00 06/19/17 11:00 Internal Medicine: Result - Labs CBC & Chem 7: 06/19/17 01:44 06/19/17 01:44 Labs: Short CBC 06/18/17 06/19/17 Range/Units 17:11 01:44 WBC 7.2 (4.3-11.1) K/mcL Hgb 8.6 L 9.4 L (11.5-15.4) g/dL Hct 26.8 L 29.9 L (35.3-44.9) % Plt Count 230 (140-400) K/mcL Neutrophils # 6.2 (1.6-8.9) K/mcL BMP 06/19/17 01:44 Sodium 131 L Potassium 3.8 Chloride 97 L Carbon Dioxide 20 L BUN 38 H Creatinine 1.63 H Glucose 321 H Calcium 9.9 Liver Function 06/19/17 Range/Units 01:44 Total Bilirubin 0.2 L (0.3-1.0) mg/dL AST 59 H (13-39) Units/L ALT 61 H (7-52) Units/L Alkaline Phosphatase 85 (34-104) Units/L Albumin 3.7 (3.5-5.7) g/dL Urine 06/18/17 Range/Units 19:13 Urine Color Yellow (Yellow) Urine Clarity Clear (Clear) Urine pH 6.0 (5.0-8.0) pH Units Ur Specific [place] 1.019 (1.010-1.025) Urine Protein 100 H (Neg-Trace) mg/dL Urine Glucose (UA) 250 H (Normal) mg/dL - ABG Interpretation ABG results: ABG ABG pH 7.40 pH Units (7.32-7.45) 06/16/17 10:08 ABG pCO2 37 mmHg (35-45) 06/16/17 10:08 ABG pO2 80 mmHg (85-104) L 06/16/17 10:08 ABG O2 Saturation 96 % (95-98) 06/16/17 10:08 - Attending Attestation steroid induced hyperglycemia insulin drip No pericardial window for now, defer lung biopsy at a later time, no C per Cardiology I examined this patient and my medical decision-making was reviewed with the Resident Physician. I agree with the documented findings, disposition and treatment plan as described except to the extent set forth below.
[2017-06-19] MEDS ORDERED: Insulin LISPRO 300 UNITS/3 ML VIAL SQ STA (11:54)
[2017-06-19] MEDS ORDERED: Insulin Human Regular 10 UNIT in 0.9 % Sodium Chloride 10 ML IV ONE (12:31)
[2017-06-19] MEDS ORDERED: *HR* Dextrose 50 % in Water (Syg) 50 ML SYRINGE IVP PRN (13:15)
[2017-06-19] MEDS: Insulin Human Regular 100 UNIT in 0.9 % Sodium Chloride 100 ML IVC SCH ×2 (14:32→20:42)
[2017-06-19 14:50] LABS: Calcium 9.8 mg/dL (8.6-10.3); Potassium 4.2 mEq/L (3.5-5.1)
[2017-06-19 15:28] LABS: ANA IgG by ELISA NONE DETECTED (None Detected)
[2017-06-19] MEDS: Nitroglycerin 0.2 MG PATCH.TD24 TD SCH (23:01)
[2017-06-20 02:29] LABS: Basophils % 0.2 %; Eosinophils % 0.2 %; Hematocrit 27.5 % (35.3-44.9); Hemoglobin 8.7 g/dL (11.5-15.4); Immature Granulocytes % 1.1 % (0-4); Lymphocytes # 0.7 K/mcL (0.6-4.6); Lymphocytes % 12.9 %; Mean Corpuscular HGB Conc 31.6 g/dL (31.6-35.5); Mean Corpuscular Hemoglobin 29.3 pg (28.0-33.3); Mean Corpuscular Volume 92.6 fL (83.0-100.0); Mean Platelet Volume 11.3 fL (9.4-12.4); Monocytes # 0.6 K/mcL (0.0-1.3); Monocytes % 10.8 %; Neutrophils # 4.3 K/mcL (1.6-8.9); Nucleated Red Blood Cells 0.4 /100 WBC (0); Platelet Count 256 K/mcL (140-400); Red Blood Count 2.97 M/mcL (3.82-4.97); Red Cell Distribution Width 15.1 % (11.5-14.5); Segmented Neutrophils % 74.8 %
[2017-06-20 02:48] LABS: Albumin 3.3 g/dL (3.5-5.7); Albumin/Globulin Ratio 0.9 (1.1-2.2); Bilirubin,Total 0.2 mg/dL (0.3-1.0); Calcium 9.8 mg/dL (8.6-10.3); Globulin 3.5 g/dL (2.4-3.5); Potassium 4.2 mEq/L (3.5-5.1); Total Protein 6.8 g/dL (6.4-8.9)
[2017-06-20] MEDS: Ipratropium/Albuterol Neb 3 ML IH SCH ×4 (04:24→22:02)
[2017-06-20] MEDS: Ondansetron 4 MG/2 ML VIAL IVP SCH ×3 (05:55→17:15)
[2017-06-20] MEDS: Levothyroxine 25 MCG TABLET PO SCH (05:56)
[2017-06-20] MEDS: MethylPREDNISolone 40 MG/ML VIAL IVP SCH (05:56)
--- NOTE | 2017-06-20 08:39 | Internal Med Progress Note ---
<MichelleSterling valencia - Last Filed: 06/20/17 10:22> Date of Encounter: 06/20/17 Time of Encounter: 08:36 - Assessment and plan (1) Type 2 diabetes mellitus with diabetic chronic kidney disease Current Visit: Yes Status: Chronic Assessment and plan: Patient had uncontrolled hyperglycemia yesterday likely related to steroid use patient was started on insulin drip yesterday. Blood sugars under better control today. We will transition to subcutaneous insulin. She normally takes 70/30, 40 units twice a day at home, will start with 20 units with sliding scale and adjust as needed to avoid hypoglycemia. 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 Pulmonology consulted and feel that the patient needs lung biopsy, we will pursue as an outpatient. Continue with oxygen supplementation. Continue to wean down steroids. (3) Pericardial effusion Current Visit: Yes Status: Acute Assessment and plan: Patient as evidence of pericardial effusion on CT scan and Echocardiogram. CT surgery consulted, continue to observe at this time. (4) Pneumonia Current Visit: Yes Status: Suspected Assessment and plan: Concern for possible pneumonia based on CT scan and elevated white count. Patient on IV Levaquin (day 4), discontinue steroids. Appears clinically improved, plan to treat for 5 days. Qualifiers: Pneumonia type: due to unspecified organism Laterality: left Lung location: lower lobe of lung Qualified Code(s): J18.1 - Lobar pneumonia, unspecified organism (5) CKD (chronic kidney disease) Current Visit: Yes Status: Chronic Assessment and plan: Renal function appears to be her baseline. Good Urine output. Continue to monitor. Qualifiers: Chronic kidney disease stage: stage 3 (moderate) Qualified Code(s): N18.3 - Chronic kidney disease, stage 3 (moderate) - Subjective Interval history: Patient seen and examined at bedside. Patient states that she feels pretty good today. She feels somewhat tired but otherwise has no complaints today. She denies chest pain, shortness of breath. She states she is hungry. - Constitutional Vitals: Temp Pulse Resp BP Pulse Ox 98 F 68 15 128/76 100 06/20/17 07:42 06/20/17 07:42 06/20/17 07:42 06/20/17 07:42 06/20/17 07:42 General appearance: Present: A&O X 3, morbidly obese, pleasant, answers questions appropriately - Respiratory Respiratory exam: Present: decreased breath sounds. Absent: rales, respiratory distress, rhonchi, wheezes, tachypnea - Cardiovascular Cardiovascular exam: Present: RRR. Absent: gallop, rubs, systolic murmur - GI/Abdominal GI/Abdominal exam: Present: normal bowel sounds, soft. Absent: distended, tenderness - Extremities Exam Extremities exam: Present: warm. Absent: pedal edema, tenderness Internal Medicine: Result - Labs CBC & Chem 7: 06/20/17 01:51 06/20/17 01:51 Labs: Short CBC 06/20/17 Range/Units 01:51 WBC 5.7 (4.3-11.1) K/mcL Hgb 8.7 L (11.5-15.4) g/dL Hct 27.5 L (35.3-44.9) % Plt Count 256 (140-400) K/mcL Neutrophils # 4.3 (1.6-8.9) K/mcL BMP 06/19/17 06/20/17 14:06 01:51 Sodium 133 L 138 Potassium 4.2 4.2 Chloride 99 102 Carbon Dioxide 21 L 26 BUN 40 H 42 H Creatinine 1.60 H 1.49 H Glucose 377 H 157 H Calcium 9.8 9.8 Liver Function 06/20/17 Range/Units 01:51 Total Bilirubin 0.2 L (0.3-1.0) mg/dL AST 42 H (13-39) Units/L ALT 62 H (7-52) Units/L Alkaline Phosphatase 77 (34-104) Units/L Albumin 3.3 L (3.5-5.7) g/dL - ABG Interpretation ABG results: ABG ABG pH 7.40 pH Units (7.32-7.45) 06/16/17 10:08 ABG pCO2 37 mmHg (35-45) 06/16/17 10:08 ABG pO2 80 mmHg (85-104) L 06/16/17 10:08 ABG O2 Saturation 96 % (95-98) 06/16/17 10:08 Consult Discharge Plan - Plan Referrals: Risa Epperson MD [Primary Care Provider] - <Sudarshan Stewart H - Last Filed: 06/20/17 13:44> Date of Encounter: 06/20/17 - Constitutional Vitals: Temp Pulse Resp BP Pulse Ox 98.3 F 78 15 125/66 98 06/20/17 11:47 06/20/17 11:47 06/20/17 11:47 06/20/17 11:47 06/20/17 11:47 Internal Medicine: Result - Labs CBC & Chem 7: 06/20/17 01:51 06/20/17 01:51 Labs: Short CBC 06/20/17 Range/Units 01:51 WBC 5.7 (4.3-11.1) K/mcL Hgb 8.7 L (11.5-15.4) g/dL Hct 27.5 L (35.3-44.9) % Plt Count 256 (140-400) K/mcL Neutrophils # 4.3 (1.6-8.9) K/mcL BMP 06/19/17 06/20/17 14:06 01:51 Sodium 133 L 138 Potassium 4.2 4.2 Chloride 99 102 Carbon Dioxide 21 L 26 BUN 40 H 42 H Creatinine 1.60 H 1.49 H Glucose 377 H 157 H Calcium 9.8 9.8 Liver Function 06/20/17 Range/Units 01:51 Total Bilirubin 0.2 L (0.3-1.0) mg/dL AST 42 H (13-39) Units/L ALT 62 H (7-52) Units/L Alkaline Phosphatase 77 (34-104) Units/L Albumin 3.3 L (3.5-5.7) g/dL - ABG Interpretation ABG results: ABG ABG pH 7.40 pH Units (7.32-7.45) 06/16/17 10:08 ABG pCO2 37 mmHg (35-45) 06/16/17 10:08 ABG pO2 80 mmHg (85-104) L 06/16/17 10:08 ABG O2 Saturation 96 % (95-98) 06/16/17 10:08 - Attending Attestation steroid induced hyperglycemia insulin drip discontinued start NPH/REG 35 units BID ( takes 40 at home) No pericardial window for now, defer lung biopsy at a later time, no C per Cardiology I examined this patient and my medical decision-making was reviewed with the Resident Physician. I agree with the documented findings, disposition and treatment plan as described except to the extent set forth below.
[2017-06-20] MEDS ORDERED: Insulin NPH/REG 70/30 100 UNIT/ML (x5UNIT) SQ SCH (09:00)
[2017-06-20] MEDS ORDERED: Levofloxacin 750 MG/150 ML 750 MG/150 ML BAG IVPB SCH (09:00)
[2017-06-20] MEDS: Furosemide 20 MG/2 ML VIAL IVP SCH ×2 (09:46→20:54)
[2017-06-20] MEDS: BuPROPion XL (24 HR) 150 MG TABLET PO SCH (09:48)
[2017-06-20] MEDS: Gabapentin 300 MG CAPSULE PO SCH ×2 (09:48→20:53)
[2017-06-20] MEDS: Multivit/Ca/Min/Fe/FA 1 TAB TABLET PO SCH (09:48)
[2017-06-20] MEDS: Magnesium Oxide 400 MG TABLET PO SCH (09:48)
[2017-06-20] MEDS: (Ubidecarenone [Co Q-10] 10 MG) PO SCH (10:04)
[2017-06-20] MEDS: Budesonide/Formoterol 160/4.5 MDI IH SCH ×2 (10:26→22:02)
[2017-06-20] MEDS: Insulin LISPRO 300 UNITS/3 ML VIAL SQ SCH ×2 (11:47→17:00)
--- NOTE | 2017-06-20 11:59 | Event Note ---
Date of Encounter: 06/20/17 Time of Encounter: 11:58 Nephrology Chart Review She has stable renal function and evidence of good UOP. I will be available this weekend if needed. Thank you
--- NOTE | 2017-06-20 12:53 | Cardiothoracic Progress Note ---
Date of Encounter: 06/20/17 Time of Encounter: 12:50 - Subjective Interval history: Patient seen. Lying in the. Hospitalists at bedside. Discussed patient's pericardial effusion without evidence of tamponade on either on echo or clinical exam. Patient denies any chest pain or new complaints. Discuss availability if there is any question or concerns regarding shortness of breath and worsening symptoms. Vital Signs, Last 4 Hours Temp Pulse Resp BP Pulse Ox 06/20/17 11:47 98.3 F 78 15 125/66 98 06/20/17 10:31 16 98 06/20/17 09:50 100 Oxgyen Flow Rate Oxygen Flow Rate (LPM) 3 - Labs 06/20/17 01:51 06/20/17 01:51 Lab Results, Last 24 hours 06/19/17 06/20/17 06/20/17 14:06 01:51 01:51 WBC 5.7 Hgb 8.7 L Hct 27.5 L Plt Count 256 Sodium 133 L 138 Potassium 4.2 4.2 Chloride 99 102 Carbon Dioxide 21 L 26 BUN 40 H 42 H Creatinine 1.60 H 1.49 H Glucose 377 H 157 H Calcium 9.8 9.8 Total Bilirubin 0.2 L AST 42 H ALT 62 H Alkaline Phosphatase 77 Consult Discharge Plan - Plan Referrals: Risa Epperson MD [Primary Care Provider] -
[2017-06-20] MEDS: Insulin NPH/REG 70/30 100 UNIT/ML (x5UNIT) SQ SCH (20:55)
[2017-06-20] MEDS ORDERED: Insulin LISPRO 300 UNITS/3 ML VIAL SQ SCH (21:00)
[2017-06-20] MEDS: Nitroglycerin 0.2 MG PATCH.TD24 TD SCH (22:33)
[2017-06-21] MEDS: Ondansetron 4 MG/2 ML VIAL IVP SCH ×3 (00:28→10:41)
[2017-06-21] MEDS: Acetaminophen 325 MG TABLET PO PRN ×2 (00:29→10:21)
[2017-06-21 01:39] LABS: Hematocrit 29.3 % (35.3-44.9); Hemoglobin 9.1 g/dL (11.5-15.4); Mean Corpuscular HGB Conc 31.1 g/dL (31.6-35.5); Mean Corpuscular Volume 93.3 fL (83.0-100.0); Mean Platelet Volume 11.2 fL (9.4-12.4); Platelet Count 270 K/mcL (140-400); Red Blood Count 3.14 M/mcL (3.82-4.97); Red Cell Distribution Width 15.4 % (11.5-14.5)
[2017-06-21 02:05] LABS: Calcium 9.6 mg/dL (8.6-10.3); Potassium 3.9 mEq/L (3.5-5.1)
[2017-06-21] MEDS: Ipratropium/Albuterol Neb 3 ML IH SCH ×2 (04:34→10:20)
[2017-06-21] MEDS: Levothyroxine 25 MCG TABLET PO SCH (06:38)
[2017-06-21] MEDS: traMADol 50 MG TABLET PO PRN (06:45)
[2017-06-21] MEDS: Insulin LISPRO 300 UNITS/3 ML VIAL SQ SCH ×2 (07:53→12:03)
--- NOTE | 2017-06-21 08:11 | Discharge Summary ---
<Sterling Tirado - Last Filed: 06/21/17 08:24> - NOTES TO OUTPATIENT PROVIDER Notes to Outpatient Provider: Patient refused pursuing pericardial window and open lung biopsy as inpatient but said will think about it as an outpatient. Orders not resulted at time of discharge: Pending orders 06/16/17 17:56 MPO/PR3 (ANCA) Antibodies DAILY 06/18/17 13:56 Occult Blood,Stool [BF] Routine Date of Encounter: 06/21/17 Time of Encounter: 08:07 - Discharge Diagnosis (1) Pulmonary fibrosis Priority: Primary Status: Chronic (2) Pericardial effusion Priority: Primary Status: Acute (3) Type 2 diabetes mellitus with diabetic chronic kidney disease Priority: Secondary Status: Chronic Qualifiers: Diabetes mellitus senior care insulin use: with senior care use Chronic kidney disease stage: stage 3 (moderate) Qualified Code(s): E11.22 - Type 2 diabetes mellitus with diabetic chronic kidney disease; N18.3 - Chronic kidney disease, stage 3 (moderate); N18.3 - Chronic kidney disease, stage 3 (moderate); 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 García is a 56 year old female with history of pulmonary fibrosis presented with chest pain. Patient underwent echocardiography which revealed a pericardial effusion and chest CT which revealed pulmonary fibrosis. The patient was seen and evaluated by CT surgery who recommended pericardial window as well as open lung biopsy however the patient was hesitant to have this completed as an inpatient. Therefore the decision was made to defer this to outpatient procedures. Patient was treated for an exacerbation of her underlying lung disease with 5 days of antibiotics was IV steroids and will be transitioned and tapered with oral prednisone at discharge. Given her IV steroids patient had persistent hyperglycemia that required an insulin drip for sugar control. She was transitioned back to her subcutaneous insulin regimen which will be slightly decreased given her excellent control as an outpatient and concerns for hypoglycemia home. She was instructed to monitor her blood sugars at home and take these readings to her primary care physician for further insulin management. The patient will be discharged home in stable condition. Discharge discussed with: patient - Time Spent with Patient Total time spent providing and/or coordinating discharge services: 40 minutes - Discharge Medications Prescriptions: predniSONE [PredniSONE] See Taper PO DAILY #30 tablet Home Medications: Albuterol Sulfate [Ventolin Hfa] 1 - 2 puff IH Q4-6H PRN 06/16/17 [History] Atorvastatin Calcium [Lipitor] 80 mg PO HS 06/16/17 [History] Bupropion HCl [Wellbutrin Xl] 300 mg PO DAILY 06/16/17 [History] Gabapentin [Neurontin] 300 mg PO BID 06/16/17 [History] Hydroxychloroquine Sulfate [Plaquenil] 200 mg PO BID 06/16/17 [History] Ipratropium/Albuterol Neb [Duoneb] 3 ml IH Q6HR PRN 06/16/17 [History] Levothyroxine Sodium [Levoxyl] 25 mcg PO DAILY 06/16/17 [History] Magnesium Oxide [Magnesium] 400 mg PO DAILY 06/16/17 [History] Metoprolol [Lopressor] 37.5 mg PO BID 06/16/17 [History] Mv,Fe,Min/Lutein [A Thru Z [employer] Tablet] 1 tab PO DAILY 06/16/17 [ History] Omeprazole [PriLOSEC] 20 mg PO DAILY 06/16/17 [History] Ubidecarenone [Co Q-10] 10 mg PO DAILY 06/16/17 [History] hydrALAZINE [HydrALAZINE] 10 mg PO TID 06/16/17 [History] Insulin NPH Hum/Reg Insulin Hm [Humulin 70-30 Vial] 25 unit SQ BID #0 06/21/17 [ Rx] predniSONE [PredniSONE] See Taper PO DAILY #30 tablet 06/21/17 [Rx] Allergies/Adverse Reactions: 3 Allergy/AdvReac Type Severity Reaction Status Date / Time codeine Allergy Vomiting Verified 06/17/17 07:46 Cortisone Allergy Headache Verified 06/17/17 07:46 methocarbamol [From Robaxin] Allergy See Verified 06/17/17 07:46 Comments sulfasalazine Allergy Rash Verified 06/17/17 07:46 Date of admission: 06/16/17 06:21 Primary care physician: Risa Epperson MD Consults: 06/16/17 09:23 Consult to Physician [CONS] Routine Consulting Provider: Cardiology [facility] Reason for Consult: chest paimn Time Notified: 09:23 Call Completed: No 06/16/17 09:27 Consult to Nephrology [CONS] Routine Consulting Provider: Kidney Ramona/FLORI/PEPPER/JEFFRY Reason for Consult: tracy Time Notified: 09:33 Call Completed: Yes 06/17/17 13:06 Consult to Cardiothoracic Surgery [CONS] Routine Consulting Provider: Cardiothoracic Surgery Ramona Reason for Consult: pericardial effusion Time Notified: 13:05 Call Completed: Yes 06/18/17 08:30 Consult to Pulmonology [CONS] Routine Consulting Provider: Pulm Crit Care & Sleep Ramona Reason for Consult: sob and worsening lung opacities Possible lung biopsy Call Completed: Yes 06/19/17 13:15 Consult to Occupational Therapy [CONS] Routine Comment: Evaluate, develop and implement POC Reason for Consult: eval Consult to Physical Therapy [CONS] Routine Comment: Evaluate, develop and implement POC Reason for Consult: eval Discharging clinician: Sterling Tirado Anticipated date of discharge: 06/21/17 - Constitutional Vitals: Temp Pulse Resp BP Pulse Ox 98.2 F 75 18 149/79 98 06/21/17 06:39 06/21/17 06:39 06/21/17 06:39 06/21/17 06:39 06/21/17 06:39 General appearance: Present: A&O X 3, morbidly obese, pleasant, answers questions appropriately - Respiratory Respiratory exam: Absent: respiratory distress, rhonchi, wheezes, tachypnea Additional comments: diffuse crackles - Cardiovascular Cardiovascular exam: Present: RRR. Absent: gallop, rubs, systolic murmur - GI/Abdominal GI/Abdominal exam: Present: normal bowel sounds, soft. Absent: distended, tenderness - Extremities Exam Extremities exam: Present: pedal edema (trace), warm. Absent: tenderness - Neurological Exam Neurological exam: Present: alert, CN II-XII intact, oriented X3, no focal deficits - Patient Status Disposition: Home, Self-Care Condition: Fair Functional capacity at discharge: independent ambulation Overall status at discharge: patient is progressing back to baseline - Discharge Instructions Follow Up With: Risa Epperson MD [Primary Care Provider] - (1 week) Faina Renee MD [Partnered Physician] - 06/24/17 1:45 pm (As scheduled) Additional Instructions: Please follow up with your PCP within 1 week. Please follow up with Dr. Renee as scheduled. Please resume your home medications. Please decrease your 70/30 insulin to 25 units twice a day. Please check your blood sugars daily and take these readings to your PCP. Please taper off your steroids as prescribed. Please wear your oxygen as directed. Please return for new or worsening symptoms. - Diet and Activity Activity: increase activity as tolerated, wear oxygen at all times Diet: advance to your usual diet <Sudarshan Stewart - Last Filed: 06/21/17 10:44> Orders not resulted at time of discharge: Pending orders 06/16/17 17:56 MPO/PR3 (ANCA) Antibodies DAILY 06/18/17 13:56 Occult Blood,Stool [BF] Routine Date of Encounter: 06/21/17 Hospital course: Ms. García is a 56 year old female - Time Spent with Patient Total time spent providing and/or coordinating discharge services: Date of admission: 06/16/17 06:21 Primary care physician: Risa Epperson MD Consults: 06/16/17 09:23 Consult to Physician [CONS] Routine Consulting Provider: Cardiology [place] Reason for Consult: chest paimn Time Notified: 09:23 Call Completed: No 06/16/17 09:27 Consult to Nephrology [CONS] Routine Consulting Provider: Kidney Ramona/FLORI/PEPPER/JEFFRY Reason for Consult: tracy Time Notified: 09:33 Call Completed: Yes 06/17/17 13:06 Consult to Cardiothoracic Surgery [CONS] Routine Consulting Provider: Cardiothoracic Surgery Ramona Reason for Consult: pericardial effusion Time Notified: 13:05 Call Completed: Yes 06/18/17 08:30 Consult to Pulmonology [CONS] Routine Consulting Provider: Pulm Crit Care & Sleep Ramona Reason for Consult: sob and worsening lung opacities Possible lung biopsy Call Completed: Yes 06/19/17 13:15 Consult to Occupational Therapy [CONS] Routine Comment: Evaluate, develop and implement POC Reason for Consult: eval Consult to Physical Therapy [CONS] Routine Comment: Evaluate, develop and implement POC Reason for Consult: eval - Constitutional Vitals: Temp Pulse Resp BP Pulse Ox 98.2 F 75 18 149/79 98 06/21/17 06:39 06/21/17 06:39 06/21/17 06:39 06/21/17 06:39 06/21/17 06:39 - Attending Attestation steroid induced hyperglycemia Follow up with PCP to adjust insulin dose taper prednisone No pericardial window for now, defer lung biopsy at a later time, no LHC per Cardiology I examined this patient and my medical decision-making was reviewed with the Resident Physician. I agree with the documented findings, disposition and treatment plan as described except to the extent set forth below
--- NOTE | 2017-06-21 09:12 | Cardiothoracic Progress Note ---
Date of Encounter: 06/21/17 Time of Encounter: 09:10 - Subjective Procedure(s) Performed: Patient seen and examined. Sitting up in chair without complaint. Denies any new shortness of breath or any new symptoms of chest discomfort or dyspnea on exertion. Nursing reports no acute events overnight. We will be available to assist management as needed Interval history: Patient seen. Lying in the. Hospitalists at bedside. Discussed patient's pericardial effusion without evidence of tamponade on either on echo or clinical exam. Patient denies any chest pain or new complaints. Discuss availability if there is any question or concerns regarding shortness of breath and worsening symptoms. Vital Signs, Last 4 Hours Temp Pulse Resp BP Pulse Ox 06/21/17 06:39 98.2 F 75 18 149/79 98 Oxgyen Flow Rate Oxygen Flow Rate (LPM) 2 - Labs 06/21/17 00:52 06/21/17 00:52 Lab Results, Last 24 hours 06/21/17 06/21/17 00:52 00:52 WBC 5.0 Hgb 9.1 L Hct 29.3 L Plt Count 270 Sodium 138 Potassium 3.9 Chloride 101 Carbon Dioxide 27 BUN 50 H Creatinine 1.85 H Glucose 138 H Calcium 9.6 Consult Discharge Plan - Plan Additional Instructions: Please follow up with your PCP within 1 week. Please follow up with Dr. Renee as scheduled. Please resume your home medications. Please decrease your 70/30 insulin to 25 units twice a day. Please check your blood sugars daily and take these readings to your PCP. Please taper off your steroids as prescribed. Please wear your oxygen as directed. Please return for new or worsening symptoms. Referrals: Faina Renee MD [Partnered Physician] - 06/24/17 1:45 pm (As scheduled) Risa Epperson MD [Primary Care Provider] - (1 week) Prescriptions: predniSONE [PredniSONE] See Taper PO DAILY #30 tablet
[2017-06-21] MEDS: Budesonide/Formoterol 160/4.5 MDI IH SCH (10:20)
[2017-06-21] MEDS: Insulin NPH/REG 70/30 100 UNIT/ML (x5UNIT) SQ SCH (10:21)
[2017-06-21] MEDS: Magnesium Oxide 400 MG TABLET PO SCH (10:21)
[2017-06-21] MEDS: Gabapentin 300 MG CAPSULE PO SCH (10:22)
[2017-06-21] MEDS: (Ubidecarenone [Co Q-10] 10 MG) PO SCH (10:22)
[2017-06-21] MEDS: MethylPREDNISolone 40 MG/ML VIAL IVP SCH ×2 (10:22→10:52)
[2017-06-21] MEDS: BuPROPion XL (24 HR) 150 MG TABLET PO SCH (10:23)
[2017-06-21] MEDS: Furosemide 20 MG/2 ML VIAL IVP SCH ×2 (10:23→10:39)
[2017-06-21] MEDS: Multivit/Ca/Min/Fe/FA 1 TAB TABLET PO SCH (10:23)
[2017-06-22 08:30] LABS: Myeloperoxidase Ab 1 AU/mL (0-19); Serine Protease-3 Antibody 0 AU/mL (0-19)
== END 2017-06-21 12:10 | disposition home or self-care (01) ==
LOC: 3NENU → SUATTDRO 06-16 06:21 → 3NENU 06-16 06:29
PROVIDERS: ADMIT Internal Medicine; ATTEND Internal Medicine

== ENCOUNTER 2022-02-08 01:56 | Observation (INO) ==
[2022-02-08] MEDS ORDERED: Naloxone 0.4 MG/ML INJ IVP PRN (04:42)
[2022-02-08] MEDS ORDERED: Melatonin 3 MG TABLET PO PRN (04:42)
[2022-02-08] MEDS ORDERED: Ondansetron 4 MG/2 ML VIAL IVP PRN (04:42)
[2022-02-08] MEDS ORDERED: *HR* Dextrose 50 % in Water (Syg) 50 ML SYRINGE IVP PRN (04:56)
[2022-02-08] MEDS ORDERED: D5% in Water 1,000 ML IVC PRN (04:56)
[2022-02-08] MEDS ORDERED: Dextrose Gel 15 GM/37.5 ML TUBE PO PRN ×2 (04:56)
[2022-02-08] MEDS ORDERED: Ipratropium 1 PUFF INHALER IH PRN (05:51)
[2022-02-08 05:59] LABS: Basophils % 0.8 %; Eosinophils % 1.5 %; Hematocrit 30.6 % (35.3-44.9); Hemoglobin 10.1 g/dL (11.5-15.4); Immature Granulocytes % 1.1 % (0-4); Lymphocytes # 0.7 K/mcL (0.6-4.6); Lymphocytes % 26.7 %; Mean Corpuscular Hemoglobin 31.7 pg (28.0-33.3); Mean Corpuscular Volume 95.9 fL (83.0-100.0); Mean Platelet Volume 10.7 fL (9.4-12.4); Monocytes # 0.2 K/mcL (0.0-1.3); Monocytes % 8.4 %; Neutrophils # 1.6 K/mcL (1.6-8.9); Platelet Count 147 K/mcL (140-400); Red Blood Count 3.19 M/mcL (3.82-4.97); Red Cell Distribution Width 14.2 % (11.5-14.5); Segmented Neutrophils % 61.5 %; White Blood Count 2.6 K/mcL (4.3-11.1)
[2022-02-08 06:08] LABS: INR 1.6; Prothrombin Time 17.4 Seconds (9.4-12.1)
[2022-02-08 06:10] LABS: Activated Partial Thrombo Time 35.4 Seconds (26.0-36.0)
[2022-02-08 06:30] LABS: Albumin 3.5 g/dL (3.5-5.7); Albumin/Globulin Ratio 1.1 (1.1-2.2); Bilirubin,Total 0.3 mg/dL (0.3-1.0); Calcium 8.6 mg/dL (8.6-10.3); Globulin 3.3 g/dL (2.4-3.5); Potassium 3.9 mEq/L (3.5-5.1); Total Protein 6.8 g/dL (6.4-8.9); Troponin I 0.04 ng/mL (< 0.04)
[2022-02-08] MEDS: cefTRIAXone 1,000 MG in 0.9 % Sodium Chloride Mini Bag 100 ML IVPB SCH (07:01)
[2022-02-08] MEDS: *HR* Heparin 5,000 UNIT/ML VIAL SQ SCH ×3 (07:02→21:47)
[2022-02-08] MEDS: Insulin LISPRO 300 UNITS/3 ML VIAL SUBQ SCH ×3 (11:07→17:28)
[2022-02-08] MEDS: Ipratropium 1 PUFF INHALER IH SCH ×2 (16:06→21:09)
[2022-02-08] MEDS ORDERED: Warfarin perPT PO PRN (18:00)
[2022-02-08] MEDS ORDERED: *HR* Warfarin 2.5 MG TABLET PO ONE (18:00)
[2022-02-08] MEDS: Warfarin perPT PO SCH (18:37)
[2022-02-08] MEDS: Gabapentin 300 MG CAPSULE PO SCH (21:47)
[2022-02-08] MEDS: Acetaminophen 325 MG TABLET PO PRN (22:51)
[2022-02-08] MEDS: Latanoprost 2.5 ML BOTTLE BOTH EYES SCH (22:52)
[2022-02-09] MEDS: Ipratropium 1 PUFF INHALER IH SCH ×4 (04:07→21:12)
[2022-02-09 04:59] LABS: Basophils % 0.4 %; Eosinophils % 1.3 %; Hematocrit 32.2 % (35.3-44.9); Hemoglobin 10.5 g/dL (11.5-15.4); Immature Granulocytes % 0.9 % (0-4); Lymphocytes # 0.8 K/mcL (0.6-4.6); Lymphocytes % 34.2 %; Mean Corpuscular HGB Conc 32.6 g/dL (31.6-35.5); Mean Corpuscular Hemoglobin 31.3 pg (28.0-33.3); Mean Corpuscular Volume 96.1 fL (83.0-100.0); Mean Platelet Volume 11.3 fL (9.4-12.4); Monocytes # 0.2 K/mcL (0.0-1.3); Monocytes % 10.1 %; Neutrophils # 1.2 K/mcL (1.6-8.9); Platelet Count 168 K/mcL (140-400); Red Blood Count 3.35 M/mcL (3.82-4.97); Red Cell Distribution Width 14.2 % (11.5-14.5); Segmented Neutrophils % 53.1 %; White Blood Count 2.3 K/mcL (4.3-11.1)
[2022-02-09 05:07] LABS: INR 1.5; Prothrombin Time 16.6 Seconds (9.4-12.1)
[2022-02-09] MEDS: Acetaminophen 325 MG TABLET PO PRN ×2 (05:12→21:42)
[2022-02-09] MEDS: *HR* Heparin 5,000 UNIT/ML VIAL SQ SCH ×3 (05:14→21:44)
[2022-02-09 05:15] LABS: Calcium 8.8 mg/dL (8.6-10.3); Magnesium 2.1 mg/dL (1.6-2.6); Potassium 3.8 mEq/L (3.5-5.1)
[2022-02-09 05:18] LABS: Albumin 3.4 g/dL (3.5-5.7); Albumin/Globulin Ratio 0.9 (1.1-2.2); Bilirubin,Direct 0.1 mg/dL (0.0-0.2); Bilirubin,Indirect 0.2 mg/dL (0.0-1.0); Bilirubin,Total 0.3 mg/dL (0.3-1.0); Globulin 3.8 g/dL (2.4-3.5); Total Protein 7.2 g/dL (6.4-8.9)
[2022-02-09 05:23] LABS: C-Reactive Protein 45 mg/L (Less than 10)
[2022-02-09 05:36] LABS: Ferritin 1346 ng/mL (10-120)
[2022-02-09 06:22] LABS: Bacteria,Urine Few per hpf (None-Few); Bilirubin,Urine Negative (Negative); Blood,Urine Trace (Negative); Clarity,Urine Clear (Clear); Color,Urine Yellow (Yellow); Glucose,Urine (UA) Normal (Normal); Ketones,Urine Negative (Negative); Leukocyte Esterase,Urine Negative (Negative); Mucus,Urine Few per lpf (None-Few); Nitrite,Urine Negative (Negative); Protein,Urine 100 mg/dL (Neg-Trace); RBC,Urine 0-3 per hpf (0-3); Specific Gravity,Urine 1.024 (1.010-1.025); Squamous Epithelial Cell,Urine Few per hpf (None-Few); Urobilinogen,Urine Normal (Normal)
[2022-02-09] MEDS: cefTRIAXone 1,000 MG in 0.9 % Sodium Chloride Mini Bag 100 ML IVPB SCH (06:39)
[2022-02-09] MEDS: Insulin LISPRO 300 UNITS/3 ML VIAL SUBQ SCH ×3 (07:47→17:30)
[2022-02-09] MEDS: BuPROPion XL (24 HR) 150 MG TABLET PO SCH (10:07)
[2022-02-09] MEDS: Gabapentin 300 MG CAPSULE PO SCH ×2 (10:07→21:43)
[2022-02-09] MEDS: Metoprolol XL (24 HR) Succ 50 MG TAB.ER.24H PO SCH (10:08)
[2022-02-09] MEDS: Cholecalciferol (D-3) 1,000 UNIT (25MCG) TABLET PO SCH (10:08)
[2022-02-09] MEDS: Multivit/Ca/Min/Fe/FA 1 TAB TABLET PO SCH (10:08)
[2022-02-09] MEDS: Cyanocobalamin (B-12) 1,000 MCG TABLET PO SCH (10:08)
[2022-02-09 16:15] LABS: Procalcitonin 0.08 ng/mL (0.00-0.15)
[2022-02-09 17:20] LABS: Hepatitis B Surface Antigen Nonreactive (Nonreactive)
[2022-02-09] MEDS: Warfarin perPT PO SCH (17:44)
[2022-02-09 17:49] LABS: Hepatitis C Virus Antibody Nonreactive (Nonreactive)
[2022-02-09 17:50] LABS: Hepatitis B Core IgM Nonreactive (Nonreactive)
[2022-02-09 17:51] LABS: Hepatitis A Antibody IgM Nonreactive (Nonreactive)
[2022-02-09] MEDS ORDERED: *HR* Warfarin 5 MG TABLET PO ONE (18:00)
[2022-02-09] MEDS: Latanoprost 2.5 ML BOTTLE BOTH EYES SCH (21:54)
[2022-02-10] MEDS: Ipratropium 1 PUFF INHALER IH SCH ×2 (04:11→10:40)
[2022-02-10 05:07] LABS: Eosinophils % 0.9 %; Hematocrit 32.2 % (35.3-44.9); Hemoglobin 10.5 g/dL (11.5-15.4); Immature Granulocytes % 0.4 % (0-4); Lymphocytes # 0.8 K/mcL (0.6-4.6); Lymphocytes % 33.6 %; Mean Corpuscular HGB Conc 32.6 g/dL (31.6-35.5); Mean Corpuscular Hemoglobin 31.4 pg (28.0-33.3); Mean Corpuscular Volume 96.4 fL (83.0-100.0); Mean Platelet Volume 10.9 fL (9.4-12.4); Monocytes # 0.3 K/mcL (0.0-1.3); Monocytes % 11.5 %; Neutrophils # 1.2 K/mcL (1.6-8.9); Platelet Count 155 K/mcL (140-400); Red Blood Count 3.34 M/mcL (3.82-4.97); Red Cell Distribution Width 14.3 % (11.5-14.5); Segmented Neutrophils % 53.6 %; White Blood Count 2.3 K/mcL (4.3-11.1)
[2022-02-10 05:11] LABS: INR 1.5; Prothrombin Time 16.9 Seconds (9.4-12.1)
[2022-02-10 05:27] LABS: Albumin 3.2 g/dL (3.5-5.7); Albumin/Globulin Ratio 0.9 (1.1-2.2); Bilirubin,Indirect 0.2 mg/dL (0.0-1.0); Bilirubin,Total 0.2 mg/dL (0.3-1.0); Calcium 8.6 mg/dL (8.6-10.3); Globulin 3.5 g/dL (2.4-3.5); Potassium 4.3 mEq/L (3.5-5.1); Total Protein 6.7 g/dL (6.4-8.9)
[2022-02-10] MEDS: *HR* Heparin 5,000 UNIT/ML VIAL SQ SCH (06:54)
[2022-02-10] MEDS: cefTRIAXone 1,000 MG in 0.9 % Sodium Chloride Mini Bag 100 ML IVPB SCH (07:00)
[2022-02-10] MEDS: Insulin LISPRO 300 UNITS/3 ML VIAL SUBQ SCH (07:58)
[2022-02-10] MEDS ORDERED: dexAMETHasone 4 MG TABLET PO SCH (09:00)
[2022-02-10] MEDS: Cyanocobalamin (B-12) 1,000 MCG TABLET PO SCH (09:43)
[2022-02-10] MEDS: Gabapentin 300 MG CAPSULE PO SCH (09:43)
[2022-02-10] MEDS: Cholecalciferol (D-3) 1,000 UNIT (25MCG) TABLET PO SCH (09:43)
[2022-02-10] MEDS: Metoprolol XL (24 HR) Succ 50 MG TAB.ER.24H PO SCH (09:43)
[2022-02-10] MEDS: BuPROPion XL (24 HR) 150 MG TABLET PO SCH (09:43)
[2022-02-10] MEDS: Multivit/Ca/Min/Fe/FA 1 TAB TABLET PO SCH (09:44)
[2022-02-10 10:41] VITALS: O2SAT 100
[2022-02-10 11:16] VITALS: BP 119/61; PULSE 61; TEMP 98.1
[2022-02-10] MEDS ORDERED: *HR* Warfarin 5 MG TABLET PO ONE (18:00)
== END 2022-02-10 13:02 | disposition home or self-care (01) ==
LOC: 2ANU → SUATTDRO 04:09
PROVIDERS: ADMIT Student in an Organized Health Care Education/Training Program; ATTEND Hospitalist